=== PATIENT | female | born 1935 | race Caucasian/White ===

== ENCOUNTER 2016-11-21 14:17 | Emergency (ER) | payer OTHER ==
[~2016-11-21] VITALS: Ht 160 cm; Wt 74.0 kg
[~2016-11-21 14:17] MED LIST: ATEN50TA PO; BRIN1SUS OPL; CHOL100010 PO; DULO60CA44 PO; FENO54TA PO; GLIM1TAB2 PO; LOSA50TA6 PO
[2016-11-21 14:18] VITALS: TEMP 37; Ht 160 cm; Wt 74.0 kg
--- NOTE | 2016-11-21 15:24 | DIAGNOSTIC IMAGING REPORT ---
RIGHT KNEE 3 VIEWS CLINICAL HISTORY: right knee pain, giving out Right pain COMPARISON: None. DISCUSSION: Considerable degenerative change all major joint compartments. Moderate reactive osteophytic change throughout. No evidence for fracture or dislocation. IMPRESSION: Considerable degenerative change all major joint compartments. No acute process. The above report was generated using voice recognition software. It may contain grammatical, syntax or spelling errors. Electronically signed by: Ariel Callejas M.D. 11/21/2016 3:23 PM Dictated Date/Time: 11/21/2016 3:22 PM
[2016-11-21] MEDS ORDERED: CHOL1000 PO (15:31)
[2016-11-21] MEDS ORDERED: HYZ/50125 PO (15:31)
[2016-11-21] MEDS ORDERED: HYDR-5688 PO (15:31)
--- NOTE | 2016-11-21 15:40 | EMERGENCY ROOM VISIT NOTE ---
History First contact with patient: 14:40 Chief Complaint: KNEEPAIN Stated Complaint: KNEE PAIN History of Present Illness The patient is a 81 year old female who presents to the Emergency Room with complaints of right knee pain. The patient states that she was getting out of her car earlier today when her knee "locked up" and she was unable to bear any weight on it. She has been stretching the knee without relief. She denies any pain at rest, but states that she cannot bear weight on the knee. The patient states that she has a history of knee problems. She has seen [facility] in the past and has had injections in the knee and physical therapy. She was told she may need a knee replacement at some point. She states that she has been doing well until about 3 months ago. She has had frequent episodes of her knee giving out or locking up. She has not seen orthopedics in over one year. She denies any pain in the hip or ankle. Review of Systems A complete 10 point review of systems was reviewed with the patient with pertinent positives and negatives as per history of present illness. All else were negative. Social History Smoking Status: Never Smoker Current/Historical Medications Scheduled Atenolol (Tenormin), 50 MG PO HS Cholecalciferol (Vitamin D3), 1,000 INTER.UNIT PO DAILY Fenofibrate (Tricor), 54 MG PO QAM Glimepiride (Glimepiride), 1 MG PO QAM Hctz/Losartan (Hyzaar 12.5MG/50MG), 1 TAB PO DAILY Hydrocodone/Acetaminophen 5MG/325MG ([place] 5MG/325MG), 1 TABLET PO BID Physical Exam Vital Signs Date Time Temp Pulse Resp B/P (MAP) Pulse Ox O2 Delivery O2 Flow Rate FiO2 11/21/16 14:18 37.0 56 20 188/67 98 Room Air Physical Exam VITALS: Vitals are noted on the nurse's note and reviewed by myself. Vital signs stable. GENERAL: This is a 81-year-old female, in no acute distress, nondiaphoretic, well-developed well-nourished. SKIN: No erythema or edema. MUSCULOSKELETAL: There is no ecchymosis or edema of the right knee. There is no joint effusion. Full range of motion of the knee. Negative anterior drawer. No laxity with valgus or varus stressing. NEURO: Patient was alert and oriented to person place and time. Normal sensation to light and sharp touch. Medical Decision & Procedures ER Provider Diagnostic Interpretation: RIGHT KNEE 3 VIEWS CLINICAL HISTORY: right knee pain, giving out Right pain COMPARISON: None. DISCUSSION: Considerable degenerative change all major joint compartments. Moderate reactive osteophytic change throughout. No evidence for fracture or dislocation. IMPRESSION: Considerable degenerative change all major joint compartments. No acute process. Medical Decision Differential diagnosis includes fracture, sprain, dislocation, contusion, osteoarthritis, popliteal cyst, prepatellar bursitis, septic joint, gout, among others. The patient was evaluated as above. She has no significant tenderness on exam. X-rays showed significant arthritis in all compartments. During the patient' s stay, she was able to stand up and walk to the bathroom without difficulty. She was reevaluated and was walking at her baseline with her cane. The patient will certainly need follow-up with her established orthopedics for further evaluation of her ongoing knee issues. She will call for appointment. She verbalized understanding of my assessment and treatment plan and was discharged home in good condition. The patient was independently evaluated by Dr. Kingsley, ED attending physician , who agreed with my assessment and treatment plan. Medication Reconcilliation Current Medication List: was personally reviewed by me Blood Pressure Screening Patient's blood pressure: Elevated blood pressure Blood pressure disposition: Elevated BP felt to be situational Impression Primary Impression: Osteoarthritis of right knee Departure Information Dispostion Home / Self-Care Condition GOOD Referrals Alix Lyn M.D. (PCP) Enoc Iglesias M.D. Patient Instructions My [facility] Additional Instructions Contact [facility] office to schedule a follow-up appointment regarding your knee problems. Use the cane to aid with walking. Return to the emergency department with any new/concerning symptoms. Problem Qualifiers Primary Impression: Osteoarthritis of right knee Osteoarthritis type: unspecified Qualified Codes: M17.11 - Unilateral primary osteoarthritis, right knee
--- NOTE | 2016-11-21 15:43 | EMERGENCY ROOM VISIT NOTE ---
ED Visit Note First contact with patient: 14:40 Pt well appearing here, examined at bedside. Feels knee pain has resolved. No trauma. Hx of same previously but would usually resolve quicker. Pt now walking with a normal gait. Family confirms gait appears normal. No recurrent pain. Discussed chronic knee pain and known arthritis. Pt previously told she would need a knee replacement. Discussed sx to watch/return for, she verbalized understanding and was agreeable with plan.
[2016-11-21 15:48] VITALS: BP 158/77; PULSE 71; O2SAT 99
== END 2016-11-21 15:50 | disposition home or self-care (01) ==
LOC: EDBD 14:17 → C.EDC 14:19
DX: M17.11 Unilateral primary osteoarthritis, right knee (principal)

== ENCOUNTER 2021-04-20 19:09 | Inpatient (IN) ==
--- NOTE | 2021-04-20 19:59 | Emergency Department Note ---
Impression & Plan Word finding difficulty, Weakness, Hypomagnesemia ED Provider Note Provider: Raudel Kee MD DATE OF SERVICE: 04/20/2021 CHIEF COMPLAINT: Weak, some confusion HISTORY OF PRESENT ILLNESS: Patient is a 85-year-old female history of hypertension as well as parkinsonism presenting today via ambulance from her home. Patient is not the best historian but states over the last least 4 days she has been feeling a bit more weak. States maybe a little more foggy. States she has had at least 5 or 6 falls and has at least twice hit her head. Denies severe headache at this time. No fever chills reported. A slight resting tremors reported. Patient denies any nausea or vomiting. Patient states earlier this evening she did have some trouble getting out of words. Patient's son reports intermittently her last few days she is been having some weakness in the last 2 days have been fairly well. reports that the patient according to his was well at lunch. He came down around 5:30 PM or so this evening and she seemed to have some word finding and occasionally would stare of f. REVIEW OF SYSTEMS: A total of 10 review of systems was obtained and negative except as stated above in the HPI. PAST MEDICAL HISTORY: As noted above MEDICATIONS: Reviewed home medication list SOCIAL HISTORY: Lives with son PHYSICAL EXAM: GENERAL: alert and oriented in no acute distress on stretcher Head: normocephalic and atraumatic EYES: No injection, discharge or icterus. PERRL, EOMI. NECK: Trachea midline. Supple ENT: Mucous membranes pink and moist. Tongue midline. LUNGS: Airway patent. No retractions. Breath sounds clear with good air entry bilaterally. HEART: Regular rate and rhythm. No chest wall tenderness ABDOMEN: Soft and non-tender, without guarding or rebound. SKIN: Acyanotic, warm, dry, without rashes EXTREMITIES: Without swelling, tenderness or deformity NEUROLOGICAL: No focal deficits. No dysarthria but occasionally some mild word finding. No facial droop or slurred speech. Tongue midline. Normal strength and tone in the extremities. Sensation to gross touch normal. Patient with a slight resting tremor or and pill-rolling of the right hand. EK bpm normal sinus rhythm. No PVC or PAC. No acute ST segment elevation with some findings concerning for LVH. QTc 441. Left anterior fascicular block noted. CONTINUOUS CARDIAC MONITORING: was ordered and showed a heart rate of 60s-90s bpm in normal sinus rhythm Patient's laboratory studies and imaging reviewed. Differential includes Infection, dehydration, metabolic abnormality, hypo/hyperglycemia, electrolyte disturbance, anemia, hypoxia, cardiac sources, intracerebral event, toxicologic, neurologic, as well as other pathologies. IMPRESSION/MEDICAL DECISION MAKING: Some weakness and multiple falls over the past several days. Son initially attributed maybe to some high Parkinson's meds that were recently increased but these were then stopped. Some word finding since around 5:30 PM according to the son. Patient without focal deficit or ischial droop at this time. Patient last known well was around noon to 1230 and outside the window for any thrombolytics. Also significantly hypertensive here. Did not take her atenolol by report. CT the head will be completed given this as well as the report of some falls. Basic labs completed. EMS reports the patient did live in the basement with a furnace and a carboxyhemoglobin was sent and was 0. Not having active chest pain and no abdominal symptoms reported. No significant leukocytosis with minimal anemia today. No VBG abnormality. Very mild hypokalemia and mild hypomagnesemia noted. Some IV magnesium supplementation was ordered. No evidence of liver dysfunction or thyroid dysfunction. Negative urine sample. Negative Covid test. CT of the head per radiology without significant acute pathology noted or intracranial bleeding. CTA of the head and neck ordered to be completed although constellation of neurological symptoms that indicative of an LVO. Discussed with son and patient findings thus far. She is quite weak and difficult with ambulation in the room per nursing. With some word finding/aphasia. They are in agreement the plan for further care here at the hospital and hospice was contacted. Given a dose of aspirin. DIAGNOSIS: Hypomagnesemia, weakness, word finding DISPOSITION: Hospitalist will evaluate Patient was agreeable with this plan. Son agreeable with the plan at bedside. Past Med/Surg History Medical History (Updated 04/20/21 @ 22:13 by Yokasta Holman DO) CKD stage 3 due to type 1 diabetes mellitus Degeneration of cervical intervertebral disc Dyslipidemia Female stress incontinence GERD (gastroesophageal reflux disease) History of colon polyps HTN (hypertension) Hypercalcemia Osteoarthritis Parkinsons disease Postmenopausal atrophic vaginitis Primary open angle glaucoma Senile osteoporosis Slow transit constipation Spinal stenosis of lumbar region Statin intolerance Type 2 diabetes mellitus Surgical History (Updated 04/20/21 @ 23:01 by Yokasta Holman DO) H/O cataract removal with insertion of prosthetic lens H/O colonoscopy History of esophagogastroduodenoscopy (EGD) Family History Father Cancer Unknown No problems noted. Uncle Pancreatic cancer Social History (Updated 04/20/21 @ 22:59 by Yokasta Holman DO) Smoking Status: Never smoker Hx Alcohol Use: No Hx Substance Use: No Preferred Language: Kittitian marital status: / current occupational status: retired Allergies Allergies Allergy/AdvReac Type Severity Reaction Status Date / Time Sulfa (Sulfonamide Allergy Intermediate Rash Verified 04/20/21 21:19 Antibiotics) carbidopa AdvReac Intermediate FELL Verified 04/20/21 21:24 SEVERAL TIMES levodopa AdvReac Intermediate FELL Verified 04/20/21 21:24 SEVERAL TIMES nitrofurantoin AdvReac Intermediate NAUSEA/VOMI Verified 04/20/21 21:19 TING Home Meds Home Medications Medication Instructions Recorded Confirmed acetaminophen 650 mg 650 mg PO Q12H PRN 04/20/21 04/20/21 tablet,extended release atenolol 50 mg tablet 50 mg PO QPM 04/20/21 04/20/21 furosemide 40 mg tablet 40 mg PO DAILY PRN 04/20/21 04/20/21 losartan 50 mg tablet 50 mg PO QAM 04/20/21 04/20/21 meloxicam 7.5 mg tablet 7.5 mg PO DAILY PRN 04/20/21 04/20/21 sertraline 25 mg tablet 25 mg PO QAM 04/20/21 04/20/21 Results & Data (ED) Vital Signs Vital Signs - 24 hr 04/20/21 19:22 04/20/21 19:37 04/20/21 20:01 Temperature 36.7 C 36.7 C Temperature Source Oral Oral Pulse Rate 65 Pulse Rate [Right Finger] 87 Pulse Rhythm [Right Finger] Irregular Respiratory Rate 18 17 Respiratory Depth Normal Normal Blood Pressure 201/88 H Blood Pressure [Right Arm] 171/84 H Blood Pressure Mean 125 Blood Pressure Mean [Right Arm] 113 Pulse Oximetry 95 97 Oxygen Delivery Method Room Air Room Air Room Air Sepsis Recent Fever Within 48 Hours No Sepsis New/Unexplained Change in Mental Status No Sepsis Action Taken by Nursing No Action Required Laboratory Data Result diagrams: 04/20/21 20:19 04/20/21 20:19 Lab Results 04/20/21 04/20/21 04/20/21 Range/Units 20:00 20:00 20:00 WBC Cancelled RBC Cancelled Hgb Cancelled Hct Cancelled MCV Cancelled MCH Cancelled MCHC Cancelled RDW Std Deviation Cancelled RDW Coeff of Joe Cancelled Plt Count Cancelled MPV Cancelled Immature Gran % (Auto) Cancelled Neut % (Auto) Cancelled Lymph % (Auto) Cancelled [place] % (Auto) Cancelled Eos % (Auto) Cancelled Baso % (Auto) Cancelled Neut # (Auto) Cancelled Lymph # (Auto) Cancelled [place] # (Auto) Cancelled Eos # (Auto) Cancelled Baso # (Auto) Cancelled Immature Gran # (Auto) Cancelled Absolute Nucleated RBC Cancelled Nucleated RBC % (auto) Cancelled Neutrophils % (Manual) Cancelled Band Neutrophils % Cancelled Lymphocytes % (Manual) Cancelled Prolymphocyte % Cancelled Reactive Lymphs % (Man) Cancelled Monocytes % (Manual) Cancelled Eosinophils % (Manual) Cancelled Basophils % (Manual) Cancelled Metamyelocytes % (Man) Cancelled Myelocytes % (Man) Cancelled Promyelocytes % (Man) Cancelled Blast Cells % (Manual) Cancelled Plasma Cell % (Manual) Cancelled Other Cells % Cancelled Nucleated RBC % Cancelled Neutrophils # (Manual) Cancelled Band Neutrophils # Cancelled Total Absolute Neuts Cancelled Lymphocytes # (Manual) Cancelled Prolymphocyte # Cancelled Reactive Lymphs # Cancelled Total Abs Lymphocytes Cancelled Monocytes # (Manual) Cancelled Eosinophils # (Manual) Cancelled Basophils # (Manual) Cancelled Metamyelocytes # (Man) Cancelled Myelocytes # (Manual) Cancelled Promyelocytes # (Man) Cancelled Blast Cells # (Man) Cancelled Plasma Cell # (Manual) Cancelled Other Cells # Cancelled Nucleated RBCs # (Man) Cancelled Hypersegmented Neuts Cancelled Hyposegmented Neuts Cancelled Hypogranular Neuts Cancelled Large Granular Lymphs Cancelled # Lrg Granular Lymphs Cancelled Hairy Cells Cancelled Smudge Cells Cancelled Toxic Granulation Cancelled Toxic Vacuolation Cancelled Dohle Bodies Cancelled Miladis Rods Cancelled Platelet Estimate Cancelled Hypogranular Platelets Cancelled Clumped Platelets Cancelled Giant Platelets Cancelled Platelet Satelliting Cancelled RBC Morphology Cancelled Polychromasia Cancelled Hypochromasia Cancelled Poikilocytosis Cancelled Basophilic Stippling Cancelled Anisocytosis Cancelled Microcytosis Cancelled Macrocytosis Cancelled Spherocytes Cancelled Pappenheimer Bodies Cancelled Sickle Cells Cancelled Target Cells Cancelled Tear Drop Cells Cancelled Ovalocytes Cancelled Stomatocytes Cancelled Tinsley-Lockney Bodies Cancelled Echinocytes Cancelled Acanthocytes (Spur) Cancelled Rouleaux Cancelled RBC Agglutinates Cancelled Schistocytes Cancelled RBC Morph Comment Cancelled Sezary Cell Cancelled PT (9.0-12.0) Seconds INR (0.9-1.1) VBG pH (7.36-7.41) VBG pCO2 (38-50) mmHg VBG pO2 mmHg VBG HCO3 mmol/L VBG O2 Saturation % VBG Base Excess mEq/L Carboxyhemoglobin % THgb Barometric Pressure mm/Hg Sodium 141 (136-145) mmol/L Potassium TNP Chloride 106 (98-107) mmol/L Carbon Dioxide 24 (21-32) mmol/L Anion Gap 11 (3-11) BUN 17 (6-23) mg/dl Creatinine 0.70 (0.6-1.2) mg/dl Est Cr Clr Drug Dosing Not Reportable Est GFR ( Amer) 92.9 ml/min Est GFR (Non-Af Amer) 80.1 ml/min BUN/Creatinine Ratio 24.3 H (10-20) Glucose 106 H (70-99(Fasting)) mg/dl Calcium 9.0 (8.5-10.1) mg/dl Magnesium 1.4 L (1.7-2.4) mg/dl Total Bilirubin 0.5 (0.2-1.0) mg/dl AST TNP ALT 6 L (7-52) U/L Alkaline Phosphatase 87 (34-104) U/L Troponin I < 0.03 (0-0.04) ng/ml Total Protein 6.2 (6.0-8.3) gm/dl Albumin 3.8 (3.4-5.0) gm/dl Globulin 2.4 L (2.5-4.0) gm/dl Albumin/Globulin Ratio 1.6 (0.9-2) TSH (0.300-4.500) uIu/ml Urine Color Urine Appearance (Clear) Urine pH (4.5-7.5) Ur Specific [place] (1.000-1.030) Urine Protein (Negative) Urine Glucose (UA) (Negative) Urine Ketones (Negative) Urine Blood (Negative) Urine Nitrite (Negative) Urine Bilirubin (Negative) Urine Urobilinogen (Negative) Ur Leukocyte Esterase (Negative) SARS-CoV-2, RNA, NAAT NEGATIVE (NEGATIVE) 04/20/21 04/20/21 04/20/21 Range/Units 20:10 20:10 20:10 WBC RBC Hgb Hct MCV MCH MCHC RDW Std Deviation RDW Coeff of Joe Plt Count MPV Immature Gran % (Auto) Neut % (Auto) Lymph % (Auto) [place] % (Auto) Eos % (Auto) Baso % (Auto) Neut # (Auto) Lymph # (Auto) [place] # (Auto) Eos # (Auto) Baso # (Auto) Immature Gran # (Auto) Absolute Nucleated RBC Nucleated RBC % (auto) Neutrophils % (Manual) Band Neutrophils % Lymphocytes % (Manual) Prolymphocyte % Reactive Lymphs % (Man) Monocytes % (Manual) Eosinophils % (Manual) Basophils % (Manual) Metamyelocytes % (Man) Myelocytes % (Man) Promyelocytes % (Man) Blast Cells % (Manual) Plasma Cell % (Manual) Other Cells % Nucleated RBC % Neutrophils # (Manual) Band Neutrophils # Total Absolute Neuts Lymphocytes # (Manual) Prolymphocyte # Reactive Lymphs # Total Abs Lymphocytes Monocytes # (Manual) Eosinophils # (Manual) Basophils # (Manual) Metamyelocytes # (Man) Myelocytes # (Manual) Promyelocytes # (Man) Blast Cells # (Man) Plasma Cell # (Manual) Other Cells # Nucleated RBCs # (Man) Hypersegmented Neuts Hyposegmented Neuts Hypogranular Neuts Large Granular Lymphs # Lrg Granular Lymphs Hairy Cells Smudge Cells Toxic Granulation Toxic Vacuolation Dohle Bodies Miladis Rods Platelet Estimate Hypogranular Platelets Clumped Platelets Giant Platelets Platelet Satelliting RBC Morphology Polychromasia Hypochromasia Poikilocytosis Basophilic Stippling Anisocytosis Microcytosis Macrocytosis Spherocytes Pappenheimer Bodies Sickle Cells Target Cells Tear Drop Cells Ovalocytes Stomatocytes Kush[place] Bodies Echinocytes Acanthocytes (Spur) Rouleaux RBC Agglutinates Schistocytes RBC Morph Comment Sezary Cell PT 10.3 (9.0-12.0) Seconds INR 1.0 (0.9-1.1) VBG pH 7.40 (7.36-7.41) VBG pCO2 47 (38-50) mmHg VBG pO2 30 mmHg VBG HCO3 28 mmol/L VBG O2 Saturation < 60.0 % VBG Base Excess 2.6 mEq/L Carboxyhemoglobin 0.0 % THgb Barometric Pressure 726.1 mm/Hg Sodium (136-145) mmol/L Potassium Chloride (98-107) mmol/L Carbon Dioxide (21-32) mmol/L Anion Gap (3-11) BUN (6-23) mg/dl Creatinine (0.6-1.2) mg/dl Est Cr Clr Drug Dosing Est GFR ( Amer) ml/min Est GFR (Non-Af Amer) ml/min BUN/Creatinine Ratio (10-20) Glucose (70-99(Fasting)) mg/dl Calcium (8.5-10.1) mg/dl Magnesium (1.7-2.4) mg/dl Total Bilirubin (0.2-1.0) mg/dl AST ALT (7-52) U/L Alkaline Phosphatase (34-104) U/L Troponin I (0-0.04) ng/ml Total Protein (6.0-8.3) gm/dl Albumin (3.4-5.0) gm/dl Globulin (2.5-4.0) gm/dl Albumin/Globulin Ratio (0.9-2) TSH (0.300-4.500) uIu/ml Urine Color Urine Appearance (Clear) Urine pH (4.5-7.5) Ur Specific [place] (1.000-1.030) Urine Protein (Negative) Urine Glucose (UA) (Negative) Urine Ketones (Negative) Urine Blood (Negative) Urine Nitrite (Negative) Urine Bilirubin (Negative) Urine Urobilinogen (Negative) Ur Leukocyte Esterase (Negative) SARS-CoV-2, RNA, NAAT (NEGATIVE) 04/20/21 04/20/21 04/20/21 Range/Units 20:10 20:19 20:19 WBC 6.50 RBC 3.90 L Hgb 11.8 L Hct 37.3 MCV 95.6 MCH 30.3 MCHC 31.6 L RDW Std Deviation 48.9 H RDW Coeff of Joe 14.0 Plt Count 246 MPV 10.0 Immature Gran % (Auto) 0.2 Neut % (Auto) 53.7 Lymph % (Auto) 33.5 [place] % (Auto) 8.8 Eos % (Auto) 3.2 Baso % (Auto) 0.6 Neut # (Auto) 3.49 Lymph # (Auto) 2.18 [place] # (Auto) 0.57 Eos # (Auto) 0.21 Baso # (Auto) 0.04 Immature Gran # (Auto) 0.01 Absolute Nucleated RBC Nucleated RBC % (auto) Neutrophils % (Manual) Band Neutrophils % Lymphocytes % (Manual) Prolymphocyte % Reactive Lymphs % (Man) Monocytes % (Manual) Eosinophils % (Manual) Basophils % (Manual) Metamyelocytes % (Man) Myelocytes % (Man) Promyelocytes % (Man) Blast Cells % (Manual) Plasma Cell % (Manual) Other Cells % Nucleated RBC % Neutrophils # (Manual) Band Neutrophils # Total Absolute Neuts Lymphocytes # (Manual) Prolymphocyte # Reactive Lymphs # Total Abs Lymphocytes Monocytes # (Manual) Eosinophils # (Manual) Basophils # (Manual) Metamyelocytes # (Man) Myelocytes # (Manual) Promyelocytes # (Man) Blast Cells # (Man) Plasma Cell # (Manual) Other Cells # Nucleated RBCs # (Man) Hypersegmented Neuts Hyposegmented Neuts Hypogranular Neuts Large Granular Lymphs # Lrg Granular Lymphs Hairy Cells Smudge Cells Toxic Granulation Toxic Vacuolation Dohle Bodies Miladis Rods Platelet Estimate Hypogranular Platelets Clumped Platelets Giant Platelets Platelet Satelliting RBC Morphology Polychromasia Hypochromasia Poikilocytosis Basophilic Stippling Anisocytosis Microcytosis Macrocytosis Spherocytes Pappenheimer Bodies Sickle Cells Target Cells Tear Drop Cells Ovalocytes Stomatocytes Tinsley-Lockney Bodies Echinocytes Acanthocytes (Spur) Rouleaux RBC Agglutinates Schistocytes RBC Morph Comment Sezary Cell PT (9.0-12.0) Seconds INR (0.9-1.1) VBG pH (7.36-7.41) VBG pCO2 (38-50) mmHg VBG pO2 mmHg VBG HCO3 mmol/L VBG O2 Saturation % VBG Base Excess mEq/L Carboxyhemoglobin % THgb Barometric Pressure mm/Hg Sodium (136-145) mmol/L Potassium 3.3 L Chloride (98-107) mmol/L Carbon Dioxide (21-32) mmol/L Anion Gap (3-11) BUN (6-23) mg/dl Creatinine (0.6-1.2) mg/dl Est Cr Clr Drug Dosing Est GFR ( Amer) ml/min Est GFR (Non-Af Amer) ml/min BUN/Creatinine Ratio (10-20) Glucose (70-99(Fasting)) mg/dl Calcium (8.5-10.1) mg/dl Magnesium (1.7-2.4) mg/dl Total Bilirubin (0.2-1.0) mg/dl AST 14 ALT (7-52) U/L Alkaline Phosphatase (34-104) U/L Troponin I (0-0.04) ng/ml Total Protein (6.0-8.3) gm/dl Albumin (3.4-5.0) gm/dl Globulin (2.5-4.0) gm/dl Albumin/Globulin Ratio (0.9-2) TSH 3.894 (0.300-4.500) uIu/ml Urine Color Urine Appearance (Clear) Urine pH (4.5-7.5) Ur Specific [place] (1.000-1.030) Urine Protein (Negative) Urine Glucose (UA) (Negative) Urine Ketones (Negative) Urine Blood (Negative) Urine Nitrite (Negative) Urine Bilirubin (Negative) Urine Urobilinogen (Negative) Ur Leukocyte Esterase (Negative) SARS-CoV-2, RNA, NAAT (NEGATIVE) 04/20/21 Range/Units 21:05 WBC RBC Hgb Hct MCV MCH MCHC RDW Std Deviation RDW Coeff of Joe Plt Count MPV Immature Gran % (Auto) Neut % (Auto) Lymph % (Auto) [place] % (Auto) Eos % (Auto) Baso % (Auto) Neut # (Auto) Lymph # (Auto) [place] # (Auto) Eos # (Auto) Baso # (Auto) Immature Gran # (Auto) Absolute Nucleated RBC Nucleated RBC % (auto) Neutrophils % (Manual) Band Neutrophils % Lymphocytes % (Manual) Prolymphocyte % Reactive Lymphs % (Man) Monocytes % (Manual) Eosinophils % (Manual) Basophils % (Manual) Metamyelocytes % (Man) Myelocytes % (Man) Promyelocytes % (Man) Blast Cells % (Manual) Plasma Cell % (Manual) Other Cells % Nucleated RBC % Neutrophils # (Manual) Band Neutrophils # Total Absolute Neuts Lymphocytes # (Manual) Prolymphocyte # Reactive Lymphs # Total Abs Lymphocytes Monocytes # (Manual) Eosinophils # (Manual) Basophils # (Manual) Metamyelocytes # (Man) Myelocytes # (Manual) Promyelocytes # (Man) Blast Cells # (Man) Plasma Cell # (Manual) Other Cells # Nucleated RBCs # (Man) Hypersegmented Neuts Hyposegmented Neuts Hypogranular Neuts Large Granular Lymphs # Lrg Granular Lymphs Hairy Cells Smudge Cells Toxic Granulation Toxic Vacuolation Dohle Bodies Miladis Rods Platelet Estimate Hypogranular Platelets Clumped Platelets Giant Platelets Platelet Satelliting RBC Morphology Polychromasia Hypochromasia Poikilocytosis Basophilic Stippling Anisocytosis Microcytosis Macrocytosis Spherocytes Pappenheimer Bodies Sickle Cells Target Cells Tear Drop Cells Ovalocytes Stomatocytes Tinsley-Lockney Bodies Echinocytes Acanthocytes (Spur) Rouleaux RBC Agglutinates Schistocytes RBC Morph Comment Sezary Cell PT (9.0-12.0) Seconds INR (0.9-1.1) VBG pH (7.36-7.41) VBG pCO2 (38-50) mmHg VBG pO2 mmHg VBG HCO3 mmol/L VBG O2 Saturation % VBG Base Excess mEq/L Carboxyhemoglobin % THgb Barometric Pressure mm/Hg Sodium (136-145) mmol/L Potassium Chloride (98-107) mmol/L Carbon Dioxide (21-32) mmol/L Anion Gap (3-11) BUN (6-23) mg/dl Creatinine (0.6-1.2) mg/dl Est Cr Clr Drug Dosing Est GFR ( Amer) ml/min Est GFR (Non-Af Amer) ml/min BUN/Creatinine Ratio (10-20) Glucose (70-99(Fasting)) mg/dl Calcium (8.5-10.1) mg/dl Magnesium (1.7-2.4) mg/dl Total Bilirubin (0.2-1.0) mg/dl AST ALT (7-52) U/L Alkaline Phosphatase (34-104) U/L Troponin I (0-0.04) ng/ml Total Protein (6.0-8.3) gm/dl Albumin (3.4-5.0) gm/dl Globulin (2.5-4.0) gm/dl Albumin/Globulin Ratio (0.9-2) TSH (0.300-4.500) uIu/ml Urine Color Yellow Urine Appearance Clear (Clear) Urine pH 7.0 (4.5-7.5) Ur Specific [place] 1.012 (1.000-1.030) Urine Protein Negative (Negative) Urine Glucose (UA) Negative (Negative) Urine Ketones Negative (Negative) Urine Blood Negative (Negative) Urine Nitrite Negative (Negative) Urine Bilirubin Negative (Negative) Urine Urobilinogen Negative (Negative) Ur Leukocyte Esterase Negative (Negative) SARS-CoV-2, RNA, NAAT (NEGATIVE) Administered Medications Discontinued Medications Aspirin (Aspirin Chew 324 Mg) 324 mg PO NOW STA Stop: 04/20/21 21:56 Last Admin: 04/20/21 22:51 Dose: 324 mg Documented by: [id number] Magnesium Sulfate/Dextrose (Magnesium Sulfate / D5w) 1 gm in 100 mls @ 100 mls/hr IV NOW STA Stop: 04/20/21 22:28 Last Admin: 04/20/21 22:51 Dose: 100 mls/hr Documented by: [id number] Imaging Data Radiologist's Impression: Head CT 04/20/21 19:34 CT head/brain wo con CLINICAL HISTORY: weakness, falls, confusion at times Technique: Contiguous axial CT images of the head were acquired from the base of the skull to the vertex without intravenous contrast administration. Images were viewed in brain, subdural and bone windows. Automated dose lowering techniques and/or adjustment according to patient size were utilized for this exam. Comparison: None available at the time of this dictation. Findings: Areas of decreased attenuation are present in the periventricular and subcortical white matter bilaterally consistent with small vessel ischemic disease. Generalized cerebral atrophy with commensurate enlargement of the ventricles, sulci, and cisterns is also present. There is no acute intracranial hemorrhage or evidence of acute territorial infarction. No shift of the midline structures, mass effect, or extra-axial abnormalities are shown. Atherosclerotic calcifications are present in the intracranial segments of the internal carotid arteries. There is a likely subarachnoid cyst in the left frontoparietal region. Imaged portions of the paranasal sinuses and mastoid air cells are clear. The orbits appear normal. There are no acute fractures of the calvaria or scalp swelling. Impression: No acute intracranial hemorrhage, no evidence of acute territorial infarction or other acute intracranial disease process. ACT 112: Negative or not required by law. Electronically signed by: Von Roche M.D. 04/20/2021 8:57 PM Chest X-Ray 04/20/21 19:35 XR chest 1V portable CLINICAL HISTORY: weakness TECHNIQUE: Single frontal radiograph of the chest was obtained. Comparison: None available at the time of this dictation. FINDINGS: No lines and tubes are seen. The cardiomediastinal silhouette is normal. The lungs are clear. No evidence of pleural effusion or pneumothorax. IMPRESSION: No acute chest disease. ACT 112: Negative or not required by law. Electronically signed by: Von Roche M.D. 04/20/2021 8:03 PM Discharge Plan Visit Data Chief Complaint: Weakness Stated Complaint: Weakness ED Provider: Raudel Kee Discharge Problem: Word finding difficulty, Weakness, Hypomagnesemia Patient Disposition: Being Evaluated by Hospitalist Forms Stand Alone Forms: My [facility] [place] [employer] Prescriptions Prescriptions: No Action losartan 50 mg tablet 50 mg PO QAM RF: 0 furosemide 40 mg tablet 40 mg PO DAILY PRN (Reason: EDEMA IN FEET) RF: 0 meloxicam 7.5 mg tablet 7.5 mg PO DAILY PRN (Reason: Pain) RF: 0 sertraline 25 mg tablet 25 mg PO QAM RF: 0 atenolol 50 mg tablet 50 mg PO QPM RF: 0 acetaminophen [Tylenol Arthritis] 650 mg Tablet Extended Release 650 mg PO Q12H PRN (Reason: Pain) RF: 0 Referrals Referrals: Keyanna Fink MD [Primary Care Provider] -
--- NOTE | 2021-04-20 20:05 | XRay Report ---
XR chest 1V portable CLINICAL HISTORY: weakness TECHNIQUE: Single frontal radiograph of the chest was obtained. Comparison: None available at the time of this dictation. FINDINGS: No lines and tubes are seen. The cardiomediastinal silhouette is normal. The lungs are clear. No evid ence of pleural effusion or pneumothorax. IMPRESSION: No acute chest disease. ACT 112: Negative or not required by law. Electronically signed by: Von Roche M.D. 04/20/2021 8:03 PM
[2021-04-20 20:25] LABS: Base Excess VBG 2.6 mEq/L; HCO3 VBG 28 mmol/L; PCO2 VBG 47 mmHg (38-50); PO2 VBG 30 mmHg
[2021-04-20 20:29] LABS: Troponin I < 0.03 ng/ml (0-0.04)
[2021-04-20 20:30] LABS: Basophils # (auto) 0.04 K/uL (0-0.2); Basophils % (auto) 0.6 %; Eosinophils # (auto) 0.21 K/uL (0-0.5); Eosinophils % (auto) 3.2 %; Hematocrit (blood only) 37.3 % (37-47); Hemoglobin 11.8 g/dL (12.0-16.0); Immature Granulocytes # (auto) 0.01 K/uL (0.00-0.02); Immature Granulocytes % (auto) 0.2 %; Lymphocytes # (auto) 2.18 K/uL (1.2-3.4); Lymphocytes % (auto) 33.5 %; Mean Corpuscular Hemoglobin 30.3 pg (25-34); Mean Corpuscular Hgb Conc 31.6 g/dL (32-36); Mean Corpuscular Volume 95.6 fL (80-100); Monocytes # (auto) 0.57 K/uL (0.11-0.59); Monocytes % (auto) 8.8 %; Neutrophils # (auto) 3.49 K/uL (1.4-6.5); Neutrophils % (auto) 53.7 %; Platelet Count 246 K/uL (130-400); RDW Standard Deviation 48.9 fL (36.4-46.3)
[2021-04-20 20:31] LABS: Alanine Aminotransferase 6 U/L (7-52); Albumin Globulin Ratio 1.6 (0.9-2); Albumin Level 3.8 gm/dl (3.4-5.0); Alkaline Phosphatase 87 U/L (34-104); Anion Gap 11 (3-11); BUN Creatinine Ratio 24.3 (10-20); Bilirubin,Total 0.5 mg/dl (0.2-1.0); Blood Urea Nitrogen 17 mg/dl (6-23); Carbon Dioxide 24 mmol/L (21-32); Chloride 106 mmol/L (98-107); Est GFR (African American) 92.9 ml/min; Est GFR (Non-African American) 80.1 ml/min; Globulin 2.4 gm/dl (2.5-4.0); Glucose 106 mg/dl (70-99(Fasting)); Magnesium 1.4 mg/dl (1.7-2.4); Sodium 141 mmol/L (136-145); Total Protein 6.2 gm/dl (6.0-8.3)
[2021-04-20 20:46] LABS: Prothrombin Time 10.3 Seconds (9.0-12.0)
--- NOTE | 2021-04-20 20:59 | CT Scan Report ---
CT head/brain wo con CLINICAL HISTORY: weakness, falls, confusion at times Technique: Contiguous axial CT images of the head were acquired from the base of the skull to the rosario mike without intravenous contrast administration. Images were viewed in brain, subdural and bone [facility] ws. Automated dose lowering techniques and/or adjustment according to patient size were utilized for this exam. Comparison: None available at the time of this dictation. Findings: Areas of decreased attenuation are present in the periventricular and subcortical white matter bilate rally consistent with small vessel ischemic disease. Generalized cerebral atrophy with commensurate e nlargement of the ventricles, sulci, and cisterns is also present. There is no acute intracranial hem orrhage or evidence of acute territorial infarction. No shift of the midline structures, mass effect, or extra-axial abnormalities are shown. Atherosclerotic calcifications are present in the intracran ial segments of the internal carotid arteries. There is a likely subarachnoid cyst in the left fronto parietal region. Imaged portions of the paranasal sinuses and mastoid air cells are clear. The orbits appear normal. There are no acute fractures of the calvaria or scalp swelling. Impression: No acute intracranial hemorrhage, no evidence of acute territorial infarction or other acute intracra nial disease process. ACT 112: Negative or not required by law. Electronically signed by: Von Roche M.D. 04/20/2021 8:57 PM
[2021-04-20 21:07] LABS: Oxygen Saturation VBG < 60.0 %
[2021-04-20 21:17] LABS: Appearance Urine Clear (Clear); Bilirubin Urine Negative (Negative); Blood Urine Negative (Negative); Color Urine Yellow; Glucose Urine UA Negative (Negative); Ketones Urine Negative (Negative); Leukocyte Esterase Urine Negative (Negative); Nitrite Urine Negative (Negative); Protein Urine Negative (Negative); Specific Gravity Urine 1.012 (1.000-1.030); Urobilinogen Urine Negative (Negative)
[2021-04-20 21:25] LABS: Potassium 3.3 mmol/L (3.5-5.1)
[2021-04-20] MEDS ORDERED: MAGNESIUM SULFATE / D5W 1 GM/100 ML BAG IV STA (21:29)
[2021-04-20] MEDS ORDERED: ASPIRIN CHEW 324 MG PO STA (21:55)
--- NOTE | 2021-04-20 22:11 | History & Physical Report ---
Date of Service April 20, 2021 Assessment & Plan (1) Stroke-like symptoms: Plan: New word finding difficulty that began today along with some intermittent confusion. This is new from her baseline. She has a h/o Parinsons disease and has stopped Sinemet two weeks ago. Also stopped Cymbalta 60mg. Also changed HCTZ to Lasix PRN. Multiple recurrent falls at home possibly a result of worsening Parkinson's, or med changes or both. Still has some slight word fi nding issues, however, she is doing very well remembering this and vocalizing them right now. CT head is negative but we are waiting on the angiograms. MR brain, TTE with bubble, PT/OT/speech consults ordered. Sees Dr. Ortiz regularly. Neurology was consulted. Start ASA 81mg daily. Statin intolerant. Cont to monitor on telemetry overnight. (2) Weakness: Plan: Acute weakness. Patient feels recent Moderna booster may have something to do with this. Cont workup as above. (3) Hypomagnesemia: Plan: Mag 1.4. She was given 1 gm IV and will repeat level in am. (4) Hypokalemia: Plan: K 3.3. Will give 40mg KCl now and repeat in am. (5) Parkinsons disease: Plan: Off sinement since two weeks ago. Neuro to evaluate. (6) HTN (hypertension): Plan: Permissive HTN allowed in first 48 hours. Hold home antihypertensives (7) CKD stage 3 due to type 1 diabetes mellitus: Plan: chronic, at baseline. Cont to monitor. (8) DVT prophylaxis: Plan: Lovenox. DNR-confirmed with she and her son on admission. Dispo-to telemetry floor, likely to home tomorrow afternoon if improved . Yokasta Holman DO [facility] Hospitalist History of Present Illness Chief Complaint: weakness Primary Care Provider: Keyanna Wick MD 85 yo F with Parkinsons disease presented from home via ambulance after acute weakness and confusion today noted by family along with difficulty finding some of her words. Recurrent falls have also been an issue. She reports receiving the Moderna booster shot in the last two weeks and also had this series to begin with last year. She reports some weakness and headache in response to the vaccine that improved but she never stopped feeling slightly weak. Son is at bedside and reports her shuffling gait has worsened. She has a clear resting tremor during this interview. No other diccifulty swallowing, headache, acute visual changes, difficulty breathing, chest pain, abdominal pain, UTI symptoms or other issues reported today. Medication changes recently include stopping HCTZ because of "puffiness in her feet" and starting furosemide 40mg daily. Although her Sinemet was increased from twice daily to thrice daily in Jan 2021 by her neurologist, her PCP just took her off of sinemet completely 03/30/21. She also stopped atorvastatin 20mg daily because of myalgias from statin intolerance, and duloxetine 60mg daily was stopped without a wean. Stopping Sinemet and Cymbalta was ok with her neurologist per a [employer] message on 03/13. At that time she was reporting worsening tremors and felt this was due to one of these medications. Potassium and Mag are noted to be low on workup. Head CT is negative and CXR is clear. EKG with LAFB, sinus rhythm. Troponin is negative. CTA head and neck are pending. UA is clear. She confirms she is a DNR and can explain to me what that means. Allergies Allergy/AdvReac Type Severity Reaction Status Date / Time Sulfa (Sulfonamide Allergy Intermediate Rash Verified 04/20/21 21:19 Antibiotics) carbidopa AdvReac Intermediate FELL Verified 04/20/21 21:24 SEVERAL TIMES levodopa AdvReac Intermediate FELL Verified 04/20/21 21:24 SEVERAL TIMES nitrofurantoin AdvReac Intermediate NAUSEA/VOMI Verified 04/20/21 21:19 TING Home Medications Medication Instructions Recorded Confirmed Type acetaminophen 650 mg 650 mg PO Q12H PRN 04/20/21 04/20/21 History tablet,extended release atenolol 50 mg tablet 50 mg PO QPM 04/20/21 04/20/21 History furosemide 40 mg tablet 40 mg PO DAILY PRN 04/20/21 04/20/21 History losartan 50 mg tablet 50 mg PO QAM 04/20/21 04/20/21 History meloxicam 7.5 mg tablet 7.5 mg PO DAILY PRN 04/20/21 04/20/21 History sertraline 25 mg tablet 25 mg PO QAM 04/20/21 04/20/21 History Past Med/Surg History Medical History (Updated 04/20/21 @ 22:13 by Yokasta Holman DO) CKD stage 3 due to type 1 diabetes mellitus Degeneration of cervical intervertebral disc Dyslipidemia Female stress incontinence GERD (gastroesophageal reflux disease) History of colon polyps HTN (hypertension) Hypercalcemia Osteoarthritis Parkinsons disease Postmenopausal atrophic vaginitis Primary open angle glaucoma Senile osteoporosis Slow transit constipation Spinal stenosis of lumbar region Statin intolerance Type 2 diabetes mellitus Surgical History (Updated 04/20/21 @ 23:01 by Yokasta Holman DO) H/O cataract removal with insertion of prosthetic lens H/O colonoscopy History of esophagogastroduodenoscopy (EGD) Family History Father Cancer Unknown No problems noted. Uncle Pancreatic cancer Social History (Updated 04/20/21 @ 22:59 by Yokasta Holman DO) Smoking Status: Never smoker Hx Alcohol Use: No Hx Substance Use: No Preferred Language: Vietnamese marital status: / current occupational status: retired Review of Systems Review of Systems: All systems were reviewed and negative except as indicated in HPI above. Physical Exam Physical Exam: CONSTITUTIONAL: WNWD, vitals as above, generally well- appearing, NAD EYES: EOMI bilaterally, PERRL, normal conjunctivae, no scleral icterus, ENT: external ear and nose normal, oropharynx clear, MMM NECK: trachea midline, RESPIRATORY: clear to auscultation bilaterally, no crackles, rales or wheezes, normal respiratory effort CARDIOVASCULAR: regular rate and rhythm, S1 and 2 heard without murmurs, gallops or rubs, no JVD, no peripheral edema, no carotid bruits CHEST: inspection of chest was normal GASTROINTESTINAL: soft, nontender, ND, no guarding MUSCULOSKELETAL: strength 5/5 throughout, head is normocephalic and atraumatic, neck supple, normal palpation of chest wall without tenderness SKIN: warm and dry, NEUROLOGIC: No facial palsy, no dysarthria. Touch, pain and proprioception normal. CN 2-12 grossly intact, no sensory deficit, normal cognition, normal speech, +tremor at rest PSYCHIATRIC: alert cooperative and oriented to person, and pamela but cannot verbalize where she is located. Results & Data Results & Data ([facility]) Vital Signs (Past 12 Hours) Vital Signs Temp Pulse Pulse Resp BP BP Pulse Ox 04/20/21 20:01 36.7 C 87 17 171/84 H 97 04/20/21 19:22 36.7 C 65 18 201/88 H 95 Laboratory Results Short CBC 04/20/21 04/20/21 Range/Units 20:00 20:19 WBC Cancelled 6.50 Hgb Cancelled 11.8 L Hct Cancelled 37.3 Plt Count Cancelled 246 BMP 04/20/21 04/20/21 20:00 20:19 Sodium 141 Potassium TNP 3.3 L Chloride 106 Carbon Dioxide 24 BUN 17 Creatinine 0.70 Glucose 106 H Calcium 9.0 Cardiac Enzymes 04/20/21 Range/Units 20:00 Troponin I < 0.03 (0-0.04) ng/ml Liver Function 04/20/21 04/20/21 Range/Units 20:00 20:19 Total Bilirubin 0.5 (0.2-1.0) mg/dl AST TNP 14 ALT 6 L (7-52) U/L Alkaline Phosphatase 87 (34-104) U/L Albumin 3.8 (3.4-5.0) gm/dl Urine 04/20/21 Range/Units 21:05 Urine Color Yellow Urine Appearance Clear (Clear) Urine pH 7.0 (4.5-7.5) Ur Specific [place] 1.012 (1.000-1.030) Urine Protein Negative (Negative) Urine Glucose (UA) Negative (Negative) Diagnostic Findings Head CT 04/20/21 19:34 CT head/brain wo con CLINICAL HISTORY: weakness, falls, confusion at times Technique: Contiguous axial CT images of the head were acquired from the base of the skull to the vertex without intravenous contrast administration. Images were viewed in brain, subdural and bone windows. Automated dose lowering techniques and/or adjustment according to patient size were utilized for this exam. Comparison: None available at the time of this dictation. Findings: Areas of decreased attenuation are present in the periventricular and subcortical white matter bilaterally consistent with small vessel ischemic disease. Generalized cerebral atrophy with commensurate enlargement of the ventricles, sulci, and cisterns is also present. There is no acute intracranial hemorrhage or evidence of acute territorial infarction. No shift of the midline structures, mass effect, or extra-axial abnormalities are shown. Atherosclerotic calcifications are present in the intracranial segments of the internal carotid arteries. There is a likely subarachnoid cyst in the left frontoparietal region. Imaged portions of the paranasal sinuses and mastoid air cells are clear. The orbits appear normal. There are no acute fractures of the calvaria or scalp swelling. Impression: No acute intracranial hemorrhage, no evidence of acute territorial infarction or other acute intracranial disease process. ACT 112: Negative or not required by law. Electronically signed by: Von Roche M.D. 04/20/2021 8:57 PM Chest X-Ray 04/20/21 19:35 XR chest 1V portable CLINICAL HISTORY: weakness TECHNIQUE: Single frontal radiograph of the chest was obtained. Comparison: None available at the time of this dictation. FINDINGS: No lines and tubes are seen. The cardiomediastinal silhouette is normal. The lungs are clear. No evidence of pleural effusion or pneumothorax. IMPRESSION: No acute chest disease. ACT 112: Negative or not required by law. Electronically signed by: Von Roche M.D. 04/20/2021 8:03 PM Code Status & VTE Plan VTE Prophylaxis Plan VTE Prophylaxis will be ordered: Yes
[2021-04-20] MEDS ORDERED: POTASSIUM CHLORIDE CRTAB 20 MEQ TABCR PO STA (23:08)
[2021-04-20] MEDS ORDERED: LORazepam 0.25 MG/0.5 ML VIAL IV STA (23:30)
[2021-04-20] MEDS ORDERED: ACETAMINOPHEN 325 MG TAB PO PRN (23:56)
[2021-04-20] MEDS ORDERED: PHARMACIST DISCHARGE MED REC CONSULT PRN (23:56)
[2021-04-20] MEDS ORDERED: POLYETHYLENE (MIRALAX) 17 GM PACK PO PRN (23:56)
[2021-04-21] MEDS ORDERED: OPTIRAY 320 125ml IV ONE (00:43)
[2021-04-21] MEDS ORDERED: ATENOLOL 25 MG TABLET PO STA (02:13)
--- NOTE | 2021-04-21 06:53 | CT Scan Report ---
HEAD & NECK CTA HISTORY: Confusion. word finding difficulty, weakness TECHNIQUE: Multiaxial CT images of the head were performed following the intravenous administration o f contrast to evaluate the major cerebral vessels. Multiaxial CT images of the neck were also perform ed following the intravenous administration of contrast to evaluate the major cervical vessels. Maxim um intensity projection images were also obtained. A dose lowering technique was utilized adhering to the principles of ALARA. COMPARISON: Head CT 04/21/2021. FINDINGS: Visualized intracranial internal carotid arteries, distal vertebral arteries, and basilar artery are widely patent. There is no significant stenosis, occlusion, or aneurysm seen within the bilateral KAE s, MCAs, or vice president payment. There is a persistent left posterior circulation. Mild calcified plaque withi n the bilateral carotid siphons. The major dural venous sinuses appear patent. The aortic arch and proximal great vessels are widely patent. There is no significant stenosis, occ lusion, or dissection identified within the bilateral common carotid, internal carotid, or vertebral arteries. Mild calcified plaque within the left carotid bifurcation. IMPRESSION: 1. No significant stenosis, occlusion, or aneurysm within the [place]. 2. No significant stenosis, occlusion, or dissection identified within the carotid or vertebral arter ies. ACT 112: Negative or not required by law. Electronically signed by: Mani Ngo M.D. 04/21/2021 6:51 AM
--- NOTE | 2021-04-21 06:53 | CT Scan Report ---
HEAD & NECK CTA HISTORY: Confusion. word finding difficulty, weakness TECHNIQUE: Multiaxial CT images of the head were performed following the intravenous administration o f contrast to evaluate the major cerebral vessels. Multiaxial CT images of the neck were also perform ed following the intravenous administration of contrast to evaluate the major cervical vessels. Maxim um intensity projection images were also obtained. A dose lowering technique was utilized adhering to the principles of ALARA. COMPARISON: Head CT 04/21/2021. FINDINGS: Visualized intracranial internal carotid arteries, distal vertebral arteries, and basilar artery are widely patent. There is no significant stenosis, occlusion, or aneurysm seen within the bilateral KAE s, MCAs, or warehouse hand. There is a persistent left posterior circulation. Mild calcified plaque withi n the bilateral carotid siphons. The major dural venous sinuses appear patent. The aortic arch and proximal great vessels are widely patent. There is no significant stenosis, occ lusion, or dissection identified within the bilateral common carotid, internal carotid, or vertebral arteries. Mild calcified plaque within the left carotid bifurcation. IMPRESSION: 1. No significant stenosis, occlusion, or aneurysm within the [place]. 2. No significant stenosis, occlusion, or dissection identified within the carotid or vertebral arter ies. ACT 112: Negative or not required by law. Electronically signed by: Mani Ngo M.D. 04/21/2021 6:51 AM
--- NOTE | 2021-04-21 07:33 | Magnetic Resonance Report ---
Brain MRI WITHOUT CONTRAST HISTORY: word finding difficulty, r/o stroke TECHNIQUE: Multiplanar multisequence MRI of the brain was performed without the use of contrast. COMPARISON STUDY: None. FINDINGS: There are no areas of restricted diffusion to suggest acute infarction. The midline structu res are intact. There is no mass, hematoma, midline shift. The major vascular flow-voids at the skull base are well maintained. Widening of the central sulcus at the left high convexity which measures 3 .4 x 2.3 cm. This likely represents an arachnoid cyst. Mucosal thickening within ethmoid air cells op acified left frontal sinus. The mastoid air cells are clear. Patchy periventricular white matter T2 h yperintensity is nonspecific but favors mild microvascular ischemic change. There are are also mild a trophic changes within the brain. IMPRESSION: 1. No acute infarct. 2. No acute intracranial hemorrhage. 3. Atrophy and microvascular ischemic changes. ACT 112: Negative or not required by law. Electronically signed by: Mani Ngo M.D. 04/21/2021 7:32 AM
[2021-04-21] MEDS ORDERED: ENOXAPARIN INJ 40 MG/0.4 ML SYR SQ SCH (09:00)
[2021-04-21] MEDS ORDERED: SERTRALINE HCL 50 MG TABLET PO SCH (09:00)
[2021-04-21 09:53] LABS: Hematocrit (blood only) 35.7 % (37-47); Hemoglobin 11.1 g/dL (12.0-16.0); Mean Corpuscular Hemoglobin 29.8 pg (25-34); Mean Corpuscular Hgb Conc 31.1 g/dL (32-36); RDW Standard Deviation 49.5 fL (36.4-46.3); Red Blood Count 3.72 M/uL (4.2-5.4); White Blood Count 5.35 K/uL (4.8-10.8)
[2021-04-21 09:54] LABS: Mean Platelet Volume 9.9 fL (7.4-10.4); Platelet Count 255 K/uL (130-400)
[2021-04-21 10:23] LABS: Estimated Average Glucose 128 mg/dl; Hemoglobin A1C 6.1 % (4.5-5.6)
[2021-04-21 11:06] LABS: BUN Creatinine Ratio 17.1 (10-20); Chol HDL Ratio 4.3 (0-5); Creatinine Clr Calc Pharmacy 50.4 ml/min; Est GFR (African American) 92.9 ml/min; Est GFR (Non-African American) 80.1 ml/min; Magnesium 1.6 mg/dl (1.7-2.4); Phosphorus 3.2 mg/dl (2.5-4.9); Potassium 3.7 mmol/L (3.5-5.1)
--- NOTE | 2021-04-21 12:01 | Communication Note ---
Date of Service: April 21, 2021 Neurology has been asked by Dr. Yokasta Holman to assess Keysha Armenta, 85-year-old white right-handed woman who has had about a year and a half of uni lateral tremor and increasing bradykinesia and was started on Sinemet and low- dose by Dr. Dylon Ortiz probably a year or so ago. She also has rheumatoid arthritis a lot of musculoskeletal pain and was already on Cymbalta and by our rheumatology department and at the last visit with Dr. Day back in January her Sinemet was increased from 1-1/2 of the 25/100 mg Sinemet 3 times a day to 2 tablets 3 times a day and 20 mg additional Cymbalta was given to her It appears that her Parkinson's got worse in the sense that she would have frequent falls and sounds like some of this was precipitated by orthostasis and through a series of communications all her medications including Cymbalta and Sinemet were discontinued in late March She has had no further falls but her walking has gotten worse she has had more freezing her tremor is worse but she feels overall better and unfortunately has had episodes of speech arrest and today in conversation clearly has some cognitive impairment with a lot of tangential thinking and difficulty keeping her medications and physicians straight She was evaluated for stroke with a negative MRI which does show some white matter disease, negative CT angiography studies and an echocardiogram which is pending Home medications include acetaminophen atenolol furosemide losartan meloxicam and sertraline Other issues include hypomagnesemia hypertension stage III renal disease and diabetes Review of systems from the patient is a little difficult to obtain but she denies any recent headaches fever sweats chills does admit to having word finding problems and memory issues and admits to having trouble with walking increasing tremor but has had no more falls and no more episodes of what sounds like orthostasis when she stands up Exam shows a blood pressure 163/72 pulse 54 respirations are 20 she is afebrile oxygen saturations are 95% on room air She is awake alert oriented but a little disorganized in terms of the names of her physicians and exactly what medication she was taking and really cannot tell me how long she has had the Parkinson's. Her facies are little frozen there is a positive Myerson sign her speech is a little monotonous but has good volume and is a clear resting tremor of the right more than left hand and a little overall bradykinesia but I did not get her up to walk as she was in the middle of dinner and was able to use her utensils well. Reflexes were generally hypoactive. Strength appeared to be good may been a vibratory loss over the lower extremities but a detailed sensory examination was not performed At this point I think she should be managed on an outpatient basis and frankly I think some low-dose Sinemet should be restarted to see if she will have a response to that without what sounds like orthostasis and frankly I would go very gradually starting her back on 1/ tablet of Sinemet 25 100 with each meal starting with breakfast for a week and breakfast and lunch for a week and then breakfast lunch and dinner and would have her evaluated by Dr. Ortiz or Shaniqua Renteria PA-C on an outpatient basis within the next few weeks I do not see any reason to keep her in the hospital as the internal medicine group feels there is a need but I would suggest that orthostatic blood pressures be checked while she is here and that she be assessed by physical therapy to see how stable he feels she is in terms of her walking It is possible that she might need an inpatient rehabilitation stay or stay at an extended care facility with rehabilitation potential If this proves to be the discharge plan then the slow initiation of Sinemet as outlined above could be performed in that institution I am going to sign off the case at this point and will communicate my thoughts with Dr. Holman and will arrange for follow-up to be done in our office once I get back there on Friday Arnulfo Zuniga MD
[2021-04-21] MEDS ORDERED: STROKE PATIENT DISCHARGE STA (16:53)
[2021-04-21] MEDS: MAGNESIUM SULFATE / D5W 1 GM/100 ML BAG IV SCH ×2 (17:21→18:59)
[2021-04-21] MEDS ORDERED: ATENOLOL 50 MG TABLET PO SCH (21:00)
--- NOTE | 2021-04-22 18:06 | Electrocardiogram Report ---
Test Reason : Blood Pressure : / mmHG Vent. Rate : 064 BPM Atrial Rate : 064 BPM P-R Int : 196 ms QRS Dur : 098 ms QT Int : 428 ms P-R-T Axes : 047 -55 039 degrees QTc Int : 441 ms Normal sinus rhythm Left anterior fascicular block Voltage criteria for left ventricular hypertrophy Anteroseptal infarct , age undetermined Abnormal ECG No previous ECGs available Confirmed by Timothy Haynes ([id number]) on 04/22/2021 6:05:44 PM Referred By: REFERRED SELF Confirmed By:Timothy Haynes
--- NOTE | 2021-04-22 18:25 | Electrocardiogram Report ---
Test Reason : Blood Pressure : / mmHG Vent. 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
--- NOTE | 2021-05-01 09:10 | Discharge Summary ---
Date of Service April 21, 2021 Admission HPI Per Admitting Provider 85 yo F with Parkinsons disease presented from home via ambulance after acute weakness and confusion today noted by family along with difficulty finding some of her words. Recurrent falls have also been an issue. She reports receiving the Moderna booster shot in the last two weeks and also had this series to begin with last year. She reports some weakness and headache in response to the vaccine that improved but she never stopped feeling slightly weak. Son is at bedside and reports her shuffling gait has worsened. She has a clear resting tremor during this interview. No other diccifulty swallowing, headache, acute visual changes, difficulty breathing, chest pain, abdominal pain, UTI symptoms or other issues reported today. Medication changes recently include stopping HCTZ because of "puffiness in her feet" and starting furosemide 40mg daily. Although her Sinemet was increased from twice daily to thrice daily in Jan 2021 by her neurologist, her PCP just took her off of sinemet completely 03/30/21. She also stopped atorvastatin 20mg daily because of myalgias from statin intolerance, and duloxetine 60mg daily was stopped without a wean. Stopping Sinemet and Cymbalta was ok with her neurologi st per a [employer] message on 03/13. At that time she was reporting worsening tremors and felt this was due to one of these medications. Potassium and Mag are noted to be low on workup. Head CT is negative and CXR is clear. EKG with LAFB, sinus rhythm. Troponin is negative. CTA head and neck are pending. UA is clear. She confirms she is a DNR and can explain to me what that means. Admission Exam Per Admitting Provider CONSTITUTIONAL: WNWD, vitals as above, generally well-appearing, NAD EYES: EOMI bilaterally, PERRL, normal conjunctivae, no scleral icterus, ENT: external ear and nose normal, oropharynx clear, MMM NECK: trachea midline, RESPIRATORY: clear to auscultation bilaterally, no crackles, rales or wheezes, normal respiratory effort CARDIOVASCULAR: regular rate and rhythm, S1 and 2 heard without murmurs, gallops or rubs, no JVD, no peripheral edema, no carotid bruits CHEST: inspection of chest was normal GASTROINTESTINAL: soft, nontender, ND, no guarding MUSCULOSKELETAL: strength 5/5 throughout, head is normocephalic and atraumatic, neck supple, normal palpation of chest wall without tenderness SKIN: warm and dry, NEUROLOGIC: No facial palsy, no dysarthria. Touch, pain and proprioception normal. CN 2-12 grossly intact, no sensory deficit, normal cognition, normal sp eech, +tremor at rest PSYCHIATRIC: alert cooperative and oriented to person, and pamela but cannot verbalize where she is located. Principal Diagnosis Stroke-like symptoms: Weakness: Hypomagnesemia: Hypokalemia: Parkinsons disease: HTN (hypertension): Discharge Exam General- No acute distress Head- atraumatic Eyes- PERRL, EOMI, ENT- oropharynx clear Neck- supple, no JVD Lungs- clear to auscultation Heart- regular rhythm; no murmur Abdomen- normal bowel sounds, soft, nontender Extremities- no calf tenderness Neuro- alert, awake, +tremor, PERRL, EOMI; no facial palsy; no dysarthria Skin- warm & dry Discharge Data Allergies Allergy/AdvReac Type Severity Reaction Status Date / Time Sulfa (Sulfonamide Allergy Intermediate Rash Verified 04/20/21 21:19 Antibiotics) carbidopa AdvReac Intermediate FELL Verified 04/20/21 21:24 SEVERAL TIMES levodopa AdvReac Intermediate FELL Verified 04/20/21 21:24 SEVERAL TIMES nitrofurantoin AdvReac Intermediate NAUSEA/VOMI Verified 04/20/21 21:19 TING Consultations 04/20/21 21:52 ED Decision to Admit Stat 04/20/21 22:48 Consult Neurology Routine Ordered Studies 04/20/21 19:34 CT head/brain wo con Stat 04/20/21 21:29 CT angio head w con Urgent CT angio neck with con Urgent 04/21/21 22:44 MR brain wo con Routine Brain MRI WITHOUT CONTRAST HISTORY: word finding difficulty, r/o stroke TECHNIQUE: Multiplanar multisequence MRI of the brain was performed without the use of contrast. COMPARISON STUDY: None. FINDINGS: There are no areas of restricted diffusion to suggest acute infarction. The midline structures are intact. There is no mass, hematoma, midline shift. The major vascular flow-voids at the skull base are well maintained. Widening of the central sulcus at the left high convexity which measures 3.4 x 2.3 cm. This likely represents an arachnoid cyst. Mucosal thickening within ethmoid air cells opacified left frontal sinus. The mastoid air cells are clear. Patchy periventricular white matter T2 hyperintensity is nonspecific but favors mild microvascular ischemic change. There are are also mild atrophic changes within the brain. IMPRESSION: 1. No acute infarct. 2. No acute intracranial hemorrhage. 3. Atrophy and microvascular ischemic changes. ACT 112: Negative or not required by law. Electronically signed by: Mani Ngo M.D. 04/21/2021 7:32 AM Dictated:04/21/21 0729 Transcribed: 04/21/21728 HEAD & NECK CTA HISTORY: Confusion. word finding difficulty, weakness TECHNIQUE: Multiaxial CT images of the head were performed following the intravenous administration of contrast to evaluate the major cerebral vessels. Multiaxial CT images of the neck were also performed following the intravenous administration of contrast to evaluate the major cervical vessels. Maximum intensity projection images were also obtained. A dose lowering technique was utilized adhering to the principles of ALARA. COMPARISON: Head CT 04/21/2021. FINDINGS: Visualized intracranial internal carotid arteries, distal vertebral arteries, and basilar artery are widely patent. There is no significant stenosis, occlusion, or aneurysm seen within the bilateral ACAs, MCAs, or nuclear medicine pet ct technologist. There is a persistent left posterior circulation. Mild calcified plaque within the bilateral carotid siphons. The major dural venous sinuses appear patent. The aortic arch and proximal great vessels are widely patent. There is no significant stenosis, occlusion, or dissection identified within the bilateral common carotid, internal carotid, or vertebral arteries. Mild calcified plaque within the left carotid bifurcation. IMPRESSION: 1. No significant stenosis, occlusion, or aneurysm within the pauma of Barrios. 2. No significant stenosis, occlusion, or dissection identified within the car otid or vertebral arteries. ACT 112: Negative or not required by law. Electronically signed by: Mani Ngo M.D. 04/21/2021 6:51 AM Dictated:04/21/21 0647 Transcribed: 04/21/21 0647 HEAD & NECK CTA HISTORY: Confusion. word finding difficulty, weakness TECHNIQUE: Multiaxial CT images of the head were performed following the intravenous administration of contrast to evaluate the major cerebral vessels. Multiaxial CT images of the neck were also performed following the intravenous administration of contrast to evaluate the major cervical vessels. Maximum intensity projection images were also obtained. A dose lowering technique was utilized adhering to the principles of ALARA. COMPARISON: Head CT 04/21/2021. FINDINGS: Visualized intracranial internal carotid arteries, distal vertebral arteries, and basilar artery are widely patent. There is no significant stenosis, occlusion, or aneurysm seen within the bilateral ACAs, MCAs, or nuclear medicine pet ct technologist. There is a persistent left posterior circulation. Mild calcified plaque within the bilateral carotid siphons. The major dural venous sinuses appear patent. The aortic arch and proximal great vessels are widely patent. There is no significant stenosis, occlusion, or dissection identified within the bilateral common carotid, internal carotid, or vertebral arteries. Mild calcified plaque within the left carotid bifurcation. IMPRESSION: 1. No significant stenosis, occlusion, or aneurysm within the pauma of Barrios. 2. No significant stenosis, occlusion, or dissection identified within the carotid or vertebral arteries. ACT 112: Negative or not required by law. Electronically signed by: Mani Ngo M.D. 04/21/2021 6:51 AM Dictated:04/21/21646 Transcribed: 04/21/21646 XR chest 1V portable CLINICAL HISTORY: weakness TECHNIQUE: Single frontal radiograph of the chest was obtained. Comparison: None available at the time of this dictation. FINDINGS: No lines and tubes are seen. The cardiomediastinal silhouette is normal. The lungs are clear. No evidence of pleural effusion or pneumothorax. IMPRESSION: No acute chest disease. ACT 112: Negative or not required by law. Electronically signed by: Von Roche M.D. 04/20/2021 8:03 PM Dictated:04/20/212001 Transcribed: 04/20/212001 CT head/brain wo con CLINICAL HISTORY: weakness, falls, confusion at times Technique: Contiguous axial CT images of the head were acquired from the base of the skull to the vertex without intravenous contrast administration. Images were viewed in brain, subdural and bone windows. Automated dose lowering techniques and/or adjustment according to patient size were utilized for this exam. Comparison: None available at the time of this dictation. Findings: Areas of decreased attenuation are present in the periventricular and subcortical white matter bilaterally consistent with small vessel ischemic disease. Generalized cerebral atrophy with commensurate enlargement of the ventricles, sulci, and cisterns is also present. There is no acute intracranial hemorrhage or evidence of acute territorial infarction. No shift of the midline structures, mass effect, or extra-axial abnormalities are shown. Ather osclerotic calcifications are present in the intracranial segments of the internal carotid arteries. There is a likely subarachnoid cyst in the left frontoparietal region. Imaged portions of the paranasal sinuses and mastoid air cells are clear. The orbits appear normal. There are no acute fractures of the calvaria or scalp swelling. Impression: No acute intracranial hemorrhage, no evidence of acute territorial infarction or other acute intracranial disease process. ACT 112: Negative or not required by law. Electronically signed by: Von Roche M.D. 04/20/2021 8:57 PM Dictated:04/20/212055 Transcribed: 04/20/212055 Hospital Course (1) Stroke-like symptoms: New word finding difficulty that began today along with some intermittent confusion. This is new from her baseline. She has a h/o Parinsons disease and has stopped Sinemet two weeks ago. Also stopped Cymbalta 60mg. Also changed HCTZ to Lasix PRN. Multiple recurrent falls at home possibly a result of worsening Parkinson's, or med changes or both. Still has some slight word finding issues, however, she is doing very well remembering this and vocalizing them right now. CT head is negative but we are waiting on the angiograms. MRI brain showed no acute intracranial abnormality ECHO showed no evidence of septal atrial defect. No wall motion abnormality. EF 60 to 65% Case discussed with Neuro and no more testing needed Pt and and family are not interested to go to rehab even if PT/OT will recommend it Pt is very anxious to go home and son wants to take her home (2) Weakness: Acute weakness. Patient feels recent Moderna booster may have something to do with this. Recommen (3) Hypomagnesemia: Mag 1.6 today Mg replaced (4) Hypokalemia: K 3.3. on admission K 3.7 today (5) Parkinsons disease: Off sinement since two weeks ago. Neuro to evaluate. (6) HTN (hypertension): BP med resumed (7) CKD stage 3 due to type 1 diabetes mellitus: chronic, at baseline. Cont to monitor. (8) DVT prophylaxis: Lovenox. DNR-confirmed with she and her son on admission. Disposition Discharge home today Continue PT/OT outpatient Total Time Total Time Spent Total Time Spent (In Minutes): 35 minutes Discharge Plan Discharge Items Patient Disposition: Home - Self-Care Reason For Visit: WEAKNESS, DIFFICULTY WITH WORD FINDING Discharge Diagnosis: Stroke-like symptoms: Weakness: Hypomagnesemia: Hypokalemia: Parkinsons disease: HTN (hypertension): Activity: Resume your previous activity Non-emergency contact: Primary Care Provider Call non-emergency contact if: you have any medication questions Follow-up/Referrals: Keyanna Fink MD [Primary Care Provider] - Diet: Heart Healthy Addtl Attending Provider Instructions: Follow up with your primary care provider within 1 week (office will call you for the appointment) Follow with your neurologist in 3 to 4 weeks (office will call you for the appointment) Continue physical and occupational therapy Starting on Sinemet 1/2 tablet daily for 1 week; then on week 2 to take 1/2 tablet in the morning and 1/2 tablet in the afternoon, then week 3 to take three times a day (please take the Sinemet with meal) Fall precaution Pending Studies at Discharge: No Stand-Alone Forms: My [employer], Smoking Cessation Medications and DC Order Prescriptions: New carbidopa-levodopa [Sinemet] 25-100 mg tablet 0.5 tab PO UD Qty: 90 RF: 0 Continued losartan 50 mg tablet 50 mg PO QAM RF: 0 furosemide 40 mg tablet 40 mg PO DAILY PRN (Reason: EDEMA IN FEET) RF: 0 meloxicam 7.5 mg tablet 7.5 mg PO DAILY PRN (Reason: Pain) RF: 0 sertraline 25 mg tablet 25 mg PO QAM RF: 0 atenolol 50 mg tablet 50 mg PO QPM RF: 0 acetaminophen 650 mg Tablet Extended Release 650 mg PO Q12H PRN (Reason: Pain) RF: 0 Discharge Orders: Discharge Order (Routine); Ordered 04/21/21 Ordered By: Deric Gomes Admission Data Admit Date/Time: 04/20/21 22:03 Attending Provider: Deric Gomes Admit Provider: Yokasta Holman Primary Care Provider: Keyanna Fink Other Interventions: Discharge Summary Assessment (RN) Last Done: 04/21/21 16:19
== END 2021-04-21 20:06 | disposition home or self-care (01) | DRG 948 ==
LOC: ED 19:09 → EDINP 22:03 → SUATTDRO 22:03 → 2W 04-21 00:19
DX: M06.9 Rheumatoid arthritis, unspecified; R41.0 Disorientation, unspecified; M48.061 Spinal stenosis, lumbar region without neurogenic claudication; R25.1 Tremor, unspecified; M81.0 Age-related osteoporosis without current pathological fracture; M51.36 Other intervertebral disc degeneration, lumbar region; N18.30 Chronic kidney disease, stage 3 unspecified; R25.8 Other abnormal involuntary movements; E87.6 Hypokalemia; E78.5 Hyperlipidemia, unspecified; E10.22 Type 1 diabetes mellitus with diabetic chronic kidney disease; Z79.899 Other long term (current) drug therapy; R53.1 Weakness; K21.9 Gastro-esophageal reflux disease without esophagitis; H40.1190 Primary open-angle glaucoma, unspecified eye, stage unspecified; I12.9 Hypertensive chronic kidney disease with stage 1 through stage 4 chronic kidney disease, or unspecified chronic kidney disease; G20 Parkinson's disease; Z88.2 Allergy status to sulfonamides; E83.42 Hypomagnesemia; Z66 Do not resuscitate

== ENCOUNTER 2021-05-02 11:26 | Inpatient (IN) ==
[2021-05-02] MEDS ORDERED: LIDOCAINE/EPINEPH/TETRACAINE 1 EA SYR EXT ONE (12:07)
--- NOTE | 2021-05-02 12:53 | CT Scan Report ---
CT cervical spine wo con CT DOSE: 463.74 mGycm CLINICAL HISTORY: 85 years-old Female with fall. Acute head and neck injury status post fall COMPARISON: Head CT of same day and also 04/20/2021 TECHNIQUE: Multiple axial CT images of the cervical spine were obtained without contrast. A dose low ering technique was utilized adhering to the principles of ALARA. FINDINGS: Straightening of the normal cervical lordosis. Severe C1-C2 degeneration. Advanced anterior endplate spondylitic spurring and C4-C6. Moderate to severe multilevel intervertebral disc space anneliese rowing with degenerative related partial bony fusion of several levels. Posterior disc osteophyte com plex formations are most pronounced at the C4-C5 interspace. Grade 1 anterolisthesis C4 on C5 is like ly degenerative. No acute fracture or subluxation. Multilevel neuroforaminal narrowing. No prevertebral edema. Calcified plaque of the carotid arteries. Lung apices are clear without pneumo thorax. IMPRESSION: No acute fracture or subluxation. ACT 112: Negative or not required by law. The above report was generated using voice recognition software. It may contain grammatical, syntax o r spelling errors. Electronically signed by: Juan Ty M.D. 05/02/2021 12:52 PM
--- NOTE | 2021-05-02 12:56 | CT Scan Report ---
HEAD CT NONCONTRAST CT DOSE: 638.56 mGycm HISTORY: fall TECHNIQUE: Multiaxial CT images of the head were performed without the use of intravenous contrast. A utomated exposure control was utilized for this study. A dose lowering technique was utilized adheri ng to the principles of ALARA. Comparison: Head CT 04/20/2021. Findings: Chronic opacification of the left frontal sinus, unchanged. The mastoid air cells are clear . Right supraorbital and right frontal scalp swelling. Stable widening within the central sulcus at t he left high convexity. This favors an arachnoid cyst. The calvarium and skull base are intact. There is no mass, hematoma, midline shift, acute infarct. White matter hypodensity is nonspecific but sugg estive of microvascular ischemic change. The ventricles and sulci demonstrate mild age-related involu tional changes. Impression: 1. No acute intracranial abnormality. 2. Right frontal scalp injury. 3. Additional findings as described above. ACT 112: Negative or not required by law. Electronically signed by: Mani Ngo M.D. 05/02/2021 12:55 PM
--- NOTE | 2021-05-02 13:02 | Emergency Department Note ---
Impression & Plan Fall, CHI (closed head injury), Forehead laceration ED Provider Note INFORMANT: Patient and family ED PROVIDER(S): Arnulfo Dominguez MD CHIEF COMPLAINT: Fall PLAN: Disposition: Admitted Condition: Good Outpatient prescription management: none Referral: None MEDICAL DECISION MAKING: Patient presented because of a fall and head injury. She underwent CT imaging which was negative. Her laceration was repaired by Suhail Saldana PA-C. Please see his note. Case management was contacted by [facility] outpatient services and there was concern about the patient ability to be cared for at home. Family notes that her Parkinson's and situation is getting much worse. [facility] was contacted and they cannot take the patient at this time. Case management recommended inpatient management to further assist the transition. Laboratory testing was performed. Covid testing was negative. No abnormalities on labs. Patient had a consultation placed with [facility] hospitalist service. She was evaluated in ER admitted for further management. Triage Nursing notes reviewed and agree them. Vital Signs: reviewed and remarkable for no significant abnormalities Differential diagnosis: Concussion, contusion, fracture, subdural hematoma, epidural hematoma, intraparenchymal hemorrhage, as well as other pathologies. Diagnostics interpreted by me: ECG: none Cardiac Monitoring: none Imaging studies: Head CT: A noncontrast CT scan of the head was performed and was negative for tumor, fracture, intracranial hemorrhage, or other acute pathology. Spine CT negative for acute pathology. HPI: The patient is a 85 year old female who presents to the Emergency Room with complaints of a fall. This started just prior to arrival and is from getting out of bed. She lost her balance and struck the right side of her forehead. She suffered a laceration. She has been following frequently per the family. She has Parkinson's. They have been adjusting her medications and her primary is working on getting her placed at [facility]. The patient also notes the following associated symptoms, generalized weakness, mild neck pain on the sides. The patient has been given no medication prehospital for relieving factors. Current pain is rated as 0/10. Pt denies LOC, headache, fevers, chills, diaphoresis, visual changes, chest pain, breathing difficulties, nausea, vomiting, abdominal pain, back pain, melena, hematochezia, urinary symptoms, numbness, lymphadenopathy, rash, or other complaints. ROS: See above HPI for pertinent positives & negatives. A total of 10 systems reviewed and were otherwise negative. PAST MEDICAL HISTORY:See Below , Parkinson's PAST SURGICAL HISTORY:See Below, FAMILY HISTORY:See Below SOCIAL HISTORY:See Below, retired HOME MEDICATIONS:See Below ALLERGIES:See Below VITALS:See Below PHYSICAL EXAMINATION: GENERAL: Awake, alert, well-appearing, in no distress HENT: Normocephalic. Laceration to right forehead noted. Contusion over the right eyebrow noted as well. Oropharynx unremarkable. EYES: Normal conjunctiva. Sclera non-icteric. NECK: Inspection normal. Non-tender. Supple. No nuchal rigidity. FROM. No masses. RESPIRATORY: Clear to auscultation. No wheezes. No rales. Normal respiratory ef fort. CARDIAC: Normal rate. Normal rhythm. No murmurs. No rubs. Extremities warm and well perfused. Pulses equal. No JVD. GI: Soft, non-distended. No tenderness to palpation. No rebound or guarding. No masses. RECTAL: Deferred. MUSCULOSKELETAL: Upper and lower extremities are atraumatic. Chest examination reveals no tenderness. The back is symmetrical on inspection without obvious abnormality. There is no CVA tenderness to palpation. No joint edema. LOWER EXTREMITIES: Calves are equal size bilaterally and non-tender. No edema. No discoloration. NEURO: Normal sensorium. Parkinsonian tremor present. No focal sensory or motor deficits noted. SKIN: No rash or jaundice noted. Arnulfo Dominguez MD Past Med/Surg History Medical History (Updated 05/02/21 @ 15:06 by Shea De La Cruz PA-C) CKD (chronic kidney disease), stage III Degeneration of cervical intervertebral disc Depression Dyslipidemia Female stress incontinence GERD (gastroesophageal reflux disease) History of colon polyps HTN (hypertension) Hypercalcemia Osteoarthritis Parkinsons disease Postmenopausal atrophic vaginitis Primary open angle glaucoma Senile osteoporosis Slow transit constipation Spinal stenosis of lumbar region Statin intolerance Type 2 diabetes mellitus Surgical History H/O cataract removal with insertion of prosthetic lens H/O colonoscopy History of esophagogastroduodenoscopy (EGD) Family History Father Cancer Unknown No problems noted. Uncle Pancreatic cancer Social History (Updated 05/02/21 @ 15:26 by Shea De La Cruz PA-C) Smoking Status: Never smoker Hx Alcohol Use: No Hx Substance Use: No Preferred Language: Tanzanian Communication Ability: Effective Fountain Clerk Required: No Beliefs That Will Affect Care: None marital status: / Current Living Situation: Family Current Living Situation Comment: Son, Daughter in Law, Grandson current occupational status: retired Feels Safe at Home: Yes Assistive Devices: Walker Allergies Allergies Allergy/AdvReac Type Severity Reaction Status Date / Time Sulfa (Sulfonamide Allergy Intermediate Rash Verified 05/02/21 16:15 Antibiotics) carbidopa AdvReac Intermediate FELL Verified 05/02/21 16:15 SEVERAL TIMES levodopa AdvReac Intermediate FELL Verified 05/02/21 16:15 SEVERAL TIMES nitrofurantoin AdvReac Intermediate NAUSEA/VOMI Verified 05/02/21 16:15 TING Home Meds Home Medications Medication Instructions Recorded Confirmed acetaminophen 650 mg 650 mg PO QDD 04/20/21 05/02/21 tablet,extended release atenolol 50 mg tablet 50 mg PO QDL 04/20/21 05/02/21 furosemide 40 mg tablet 40 mg PO DAILY PRN 04/20/21 05/02/21 losartan 50 mg tablet 50 mg PO QAM 04/20/21 05/02/21 meloxicam 7.5 mg tablet 7.5 mg PO DAILY PRN 04/20/21 05/02/21 sertraline 25 mg tablet 25 mg PO QDD 04/20/21 05/02/21 carbidopa 25 mg-levodopa 100 mg 0.5 tab PO .BID AT 0800 & 1200 05/02/21 05/02/21 tablet (Sinemet) Results & Data (ED) Vital Signs Vital Signs - 24 hr 05/02/21 11:31 05/02/21 14:42 Temperature 36.5 C Temperature Source Oral Pulse Rate 61 Respiratory Rate 14 Respiratory Depth Normal Blood Pressure 138/56 L Blood Pressure Mean 83 Pulse Oximetry 97 96 Oxygen Delivery Method Room Air Room Air Sepsis Recent Fever Within 48 Hours No Sepsis New/Unexplained Change in Mental Status No Sepsis Action Taken by Nursing No Action Required Laboratory Data Result diagrams: 05/02/21 14:36 05/02/21 16:09 Lab Results 05/02/21 05/02/2105/02/22 Range/Units 14:35 14:36 14:36 WBC 8.43 (4.8-10.8) K/uL RBC 4.45 (4.2-5.4) M/uL Hgb 13.5 (12.0-16.0) g/dL Hct 42.7 (37-47) % MCV 96.0 (80-100) fL MCH 30.3 (25-34) pg MCHC 31.6 L (32-36) g/dL RDW Std Deviation 50.5 H (36.4-46.3) fL RDW Coeff of Joe 14.3 (11.5-14.5) % Plt Count 271 (130-400) K/uL MPV 10.0 (7.4-10.4) fL Immature Gran % (Auto) 0.2 % Neut % (Auto) 73.1 % Lymph % (Auto) 15.8 % [place] % (Auto) 9.5 % Eos % (Auto) 0.9 % Baso % (Auto) 0.5 % Neut # (Auto) 6.16 (1.4-6.5) K/uL Lymph # (Auto) 1.33 (1.2-3.4) K/uL [place] # (Auto) 0.80 H (0.11-0.59) K/uL Eos # (Auto) 0.08 (0-0.5) K/uL Baso # (Auto) 0.04 (0-0.2) K/uL Immature Gran # (Auto) 0.02 (0.00-0.02) K/uL Platelet Estimate Normal (Normal) Polychromasia 1+ Poikilocytosis Present Sodium 140 (136-145) mmol/L Potassium (3.5-5.1) mmol/L Chloride 104 (98-107) mmol/L Carbon Dioxide 26 (21-32) mmol/L Anion Gap 10 (3-11) BUN 16 (6-23) mg/dl Creatinine 0.73 (0.6-1.2) mg/dl Est Cr Clr Drug Dosing 47.7 ml/min Est GFR ( Amer) 88.3 ml/min Est GFR (Non-Af Amer) 76.2 ml/min BUN/Creatinine Ratio 21.9 H (10-20) Glucose 104 H (70-99(Fasting)) mg/dl Calcium 10.0 (8.5-10.1) mg/dl Total Bilirubin 0.5 (0.2-1.0) mg/dl AST (13-39) U/L ALT 5 L (7-52) U/L Alkaline Phosphatase 93 (34-104) U/L Total Protein 6.9 (6.0-8.3) gm/dl Albumin 4.3 (3.4-5.0) gm/dl Globulin 2.6 (2.5-4.0) gm/dl Albumin/Globulin Ratio 1.7 (0.9-2) TSH (0.300-4.500) uIu/ml SARS-CoV-2, RNA, NAAT NEGATIVE (NEGATIVE) 05/02/21 Range/Units 14:36 WBC (4.8-10.8) K/uL RBC (4.2-5.4) M/uL Hgb (12.0-16.0) g/dL Hct (37-47) % MCV (80-100) fL MCH (25-34) pg MCHC (32-36) g/dL RDW Std Deviation (36.4-46.3) fL RDW Coeff of Joe (11.5-14.5) % Plt Count (130-400) K/uL MPV (7.4-10.4) fL Immature Gran % (Auto) % Neut % (Auto) % Lymph % (Auto) % [place] % (Auto) % Eos % (Auto) % Baso % (Auto) % Neut # (Auto) (1.4-6.5) K/uL Lymph # (Auto) (1.2-3.4) K/uL [place] # (Auto) (0.11-0.59) K/uL Eos # (Auto) (0-0.5) K/uL Baso # (Auto) (0-0.2) K/uL Immature Gran # (Auto) (0.00-0.02) K/uL Platelet Estimate (Normal) Polychromasia Poikilocytosis Sodium (136-145) mmol/L Potassium (3.5-5.1) mmol/L Chloride (98-107) mmol/L Carbon Dioxide (21-32) mmol/L Anion Gap (3-11) BUN (6-23) mg/dl Creatinine (0.6-1.2) mg/dl Est Cr Clr Drug Dosing ml/min Est GFR ( Amer) ml/min Est GFR (Non-Af Amer) ml/min BUN/Creatinine Ratio (10-20) Glucose (70-99(Fasting)) mg/dl Calcium (8.5-10.1) mg/dl Total Bilirubin (0.2-1.0) mg/dl AST (13-39) U/L ALT (7-52) U/L Alkaline Phosphatase (34-104) U/L Total Protein (6.0-8.3) gm/dl Albumin (3.4-5.0) gm/dl Globulin (2.5-4.0) gm/dl Albumin/Globulin Ratio (0.9-2) TSH 1.986 (0.300-4.500) uIu/ml SARS-CoV-2, RNA, NAAT (NEGATIVE) Administered Medications Atenolol (Atenolol 50 Mg Tablet) 50 mg PO QPM TERESA Stop: 06/01/21 20:59 Last Admin: 05/02/21 20:11 Dose: 50 mg Documented by: [id number] Carbidopa/Levodopa (Carbidopa/Levodopa 25/100mg Tab) 0.5 tab PO BIDM TERESA Stop: 05/04/21 17:01 Last Admin: 05/02/21 19:40 Dose: 0.5 tab Documented by: [id number] Enoxaparin Sodium (Enoxaparin Inj 30 Mg/0.3 Ml Syr) 30 mg SQ Q24H TERESA Stop: 06/01/21 19:59 Last Admin: 05/02/21 19:41 Dose: 30 mg Documented by: [id number] Discontinued Medications Lidocaine (Lidocaine/Epineph/Tetracaine 1 Ea Syr) 1 ea EXT NOW ONE Stop: 05/02/21 12:08 Last Admin: 05/02/21 12:22 Dose: 1 ea Documented by: [id number] Lidocaine HCl (Xylocaine 1%/Sod Bicarb 20 Ml Vial) 20 ml INFIL NOW ONE Stop: 05/02/21 13:34 Last Admin: 05/02/21 13:50 Dose: 20 ml Documented by: [id number] Imaging Data Radiologist's Impression: Cervical Spine CT 05/02/21 12:07 CT cervical spine wo con CT DOSE: 463.74 mGycm CLINICAL HISTORY: 85 years-old Female with fall. Acute head and neck injury status post fall COMPARISON: Head CT of same day and also 04/20/2021 TECHNIQUE: Multiple axial CT images of the cervical spine were obtained without contrast. A dose lowering technique was utilized adhering to the principles of ALARA. FINDINGS: Straightening of the normal cervical lordosis. Severe C1-C2 degeneration. Advanced anterior endplate spondylitic spurring and C4-C6. Moderate to severe multilevel intervertebral disc space narrowing with degenerative related partial bony fusion of several levels. Posterior disc osteophyte complex formations are most pronounced at the C4-C5 interspace. Grade 1 anterolisthesis C4 on C5 is likely degenerative. No acute fracture or subluxation. Multilevel neuroforaminal narrowing. No prevertebral edema. Calcified plaque of the carotid arteries. Lung apices are clear without pneumothorax. IMPRESSION: No acute fracture or subluxation. ACT 112: Negative or not required by law. The above report was generated using voice recognition software. It may contain grammatical, syntax or spelling errors. Electronically signed by: Juan Ty M.D. 05/02/2021 12:[address] 05/02/21 12:[address] DOSE: 638.56 mGycm HISTORY: fall TECHNIQUE: Multiaxial CT images of the head were performed without the use of intravenous contrast. Automated exposure control was utilized for this study. A dose lowering technique was utilized adhering to the principles of ALARA. Comparison: Head CT 04/20/2021. Findings: Chronic opacification of the left frontal sinus, unchanged. The mastoid air cells are clear. Right supraorbital and right frontal scalp swell ing. Stable widening within the central sulcus at the left high convexity. This favors an arachnoid cyst. The calvarium and skull base are intact. There is no mass, hematoma, midline shift, acute infarct. White matter hypodensity is nonspecific but suggestive of microvascular ischemic change. The ventricles and sulci demonstrate mild age-related involutional changes. Impression: 1. No acute intracranial abnormality. 2. Right frontal scalp injury. 3. Additional findings as described above. ACT 112: Negative or not required by law. Electronically signed by: Mani Ngo M.D. 05/02/2021 12:55 PM Discharge Plan Visit Data Chief Complaint: Laceration/Cut (Suture/Dermabond) Stated Complaint: FALL, LAC TO FOREHEAD, HEAD PAIN ED Provider: Arnulfo Dominguez Discharge Problem: Fall, CHI (closed head injury), Forehead laceration Patient Disposition: Admitted As Inpatient Discharge Instructions Interventions: ED Discharge Assessment Last Done: 05/02/21 17:01
[2021-05-02] MEDS ORDERED: XYLOCAINE 1%/SOD BICARB 20 ML VIAL INFIL ONE (13:33)
--- NOTE | 2021-05-02 14:02 | Emergency Department Note ---
ED Visit Note Patient was seen and evaluated by Dr. Dominguez. I was asked to perform wound closure of the patient's right forehead/scalp laceration. This measured 3 cm in length. This does traverse deep to the dermis into the subcutaneous tissue. No significant musculature or bony injury noted. No significant disruption of the deep structures. No foreign body. Verbal consent was obtained prior to performing the procedure. Let gel was initially applied. This provided a fair amount of anesthetization. To help with further pain control, four cc of 1% buffered lidocaine without epinephrine was used to anesthetize the forehead laceration. The wound was cleansed and prepped in the typical sterile fashion utilizing normal saline and Betadine. The wound was sterilely draped. Once proper anesthetization was established, the wound was further examined and demonstrated wound as described above without foreign body or active bleeding. The wound was copiously irrigated with normal saline and Betadine. The wound was closed using 2 simple, 5-0 Vicryl sutures to close the deeper layers followed by 6 simple, 6-0 nylon sutures with the wound edges being well approximated. Patient tolerated the procedure well. No complications were met. The wound was cleansed and dressed with a Bacitracin dressing. Please refer to further documentation regarding her stay.
--- NOTE | 2021-05-02 14:55 | History & Physical Report ---
Date of Service May 02, 2021 Assessment & Plan (1) Ambulatory dysfunction: (2) Recurrent falls: (3) Parkinsons disease: Plan: Patient is 85-year-old female with PMH Parkinson's, history of recurrent falls, HTN, CKD III, depression presented to ER with complaint of fall today resulting in hitting head and head laceration. Denies LOC or other injury. At baseline mental status per son. Increased falls at home, likely secondary to Parkinson's, possible orthostatic hypotension CT Head and CT C-spine: no acute findings Obtain orthostatic vital signs UA pending Fall precautions Previously was off Sinemet for 2 weeks, however was restarted 04/21/21 at 1/2 tab daily x 1 week then 1/2 tab BID x 1 week and then to 1/2 tab TID. Pt currently on 1/2 tab BID Continue Sinemet with plans to increase to TID dosing on 05/05 PT/OT eval Will need case management assistance, as patient and family are looking for placement at [facility] and report are on wait list Follows with neurology - Dr Ortiz HEAD LACERATION repaired in ER with 6 sutures Will need suture removal in 7 days Monitor for signs of infection (4) CKD (chronic kidney disease), stage III: Plan: Cr: 0.7. Baseline Cr: ~1.0 Monitor renal functions (5) HTN (hypertension): Plan: Continue atenolol, losartan Has Lasix prn edema. Does not have significant edema currently so will hold and monitor (6) Depression: Plan: Continue sertraline DVT Prophylaxis Lovenox SQ DNR/DNI as per discussion with pt and pt's son Follows with Dr Romeo Wick for routine care Pt was seen and care coordinated with Dr Elmore. See addendum History of Present Illness Chief Complaint: Fall Primary Care Provider: Keyanna Wick MD Patient is 85-year-old female with PMH Parkinson's, history of recurrent falls, HTN, CKD III, depression presented to ER with complaint of fall. History obtained from patient and assisted by patient's son. Patient son reports at baseline patient has problems with her memory and feels like she is at her baseline today. Patient with history hospitalization at [facility] 04/20/2021- for strokelike symptoms. MRI negative for acute stroke. Patient with noted ambulatory dysfunction and reported progressive weakness. At that time family was not considering rehab or placement. Patient had been off her Sinemet for 2 weeks prior to last admission however upon last hospital discharge was re- started on low-dose Sinemet and has slowly been tapering up. Patient has had 2 falls in the past 2 weeks. Patient reports several weeks ago was having dizziness with standing but doesn't think she was dizzy prior to fall today. Son states patient upon standing has a hard time starting to walk and then her feet get tangled and she loses her balance and falls. Does have walker at home. Today fell hitting her head causing head laceration which was repaired in ER. Denies LOC. Denies any other injury. Family report that they are getting to the point where they cannot safely care for patient at home and have been trying to get patient in to [facility] personal care and son reports they are on wait list. Denies fever/chills, diaphoresis, N/V/D/C, JENSEN, syncope, vision changes, neck pain, CP, SOB, orthopnea, palpitations, cough, sore throat, choking, otalgia, rhinorrhea, abdominal pain, paresthesias, extremity edema, rashes, urinary symptoms. Allergies Allergy/AdvReac Type Severity Reaction Status Date / Time Sulfa (Sulfonamide Allergy Intermediate Rash Verified 04/20/21 21:19 Antibiotics) carbidopa AdvReac Intermediate FELL Verified 04/20/21 21:24 SEVERAL TIMES levodopa AdvReac Intermediate FELL Verified 04/20/21 21:24 SEVERAL TIMES nitrofurantoin AdvReac Intermediate NAUSEA/VOMI Verified 04/20/21 21:19 TING Home Medications Medication Instructions Recorded Confirmed Type acetaminophen 650 mg 650 mg PO Q12H PRN 04/20/21 05/02/21 History tablet,extended release atenolol 50 mg tablet 50 mg PO QPM 04/20/21 05/02/21 History furosemide 40 mg tablet 40 mg PO DAILY PRN 04/20/21 05/02/21 History losartan 50 mg tablet 50 mg PO QAM 04/20/21 05/02/21 History meloxicam 7.5 mg tablet 7.5 mg PO DAILY PRN 04/20/21 05/02/21 History sertraline 25 mg tablet 25 mg PO QAM 04/20/21 05/02/21 History carbidopa 25 mg-levodopa 100 mg 0.5 tab PO BID 05/02/21 05/02/21 History tablet (Sinemet) Past Med/Surg History Medical History (Updated 05/02/21 @ 15:06 by Shea De La Cruz PA-C) CKD (chronic kidney disease), stage III Degeneration of cervical intervertebral disc Depression Dyslipidemia Female stress incontinence GERD (gastroesophageal reflux disease) History of colon polyps HTN (hypertension) Hypercalcemia Osteoarthritis Parkinsons disease Postmenopausal atrophic vaginitis Primary open angle glaucoma Senile osteoporosis Slow transit constipation Spinal stenosis of lumbar region Statin intolerance Type 2 diabetes mellitus Surgical History H/O cataract removal with insertion of prosthetic lens H/O colonoscopy History of esophagogastroduodenoscopy (EGD) Family History Father Cancer Unknown No problems noted. Uncle Pancreatic cancer Social History (Updated 05/02/21 @ 15:26 by Shea De La Cruz PA-C) Smoking Status: Never smoker Hx Alcohol Use: No Hx Substance Use: No Preferred Language: Maltese Communication Ability: Effective [employer] Supervisor Required: No Beliefs That Will Affect Care: None marital status: / Current Living Situation: Family Current Living Situation Comment: Son, Daughter in Law, Grandson current occupational status: retired Feels Safe at Home: Yes Assistive Devices: Walker Review of Systems Review of Systems: All systems reviewed & are unremarkable except as noted in HPI & below Physical Exam Physical Exam: General: no distress, WDWN Head: normocephalic, +ecchymosis and edema right frontal/parietal region, +laceration with [address] without active bleeding Eyes: PERRL, EOM's intact, conjunctiva non-injected, anicteric ENT: normal inspection external ears, nose, mucous membranes moist Neck: supple, trachea midline, non-tender Lungs: clear, no respiratory distress, no wheezing/rhonchi/rales CV: RRR, no murmur, no pretibial edema Abd: normal BS, soft, non-tender Ext: no cyanosis, no calf tenderness Neuro: Alert, oriented to person and place, sometimes slow to answer questions and needs prompting from son, +resting tremor to hands noted, right worse than left, slight masked faces Skin: warm, dry, head laceration as above Results & Data Results & Data ([facility]) Vital Signs (Past 12 Hours) Vital Signs Temp Pulse Resp BP Pulse Ox 05/02/21 14:42 96 05/02/21 11:31 36.5 C 61 14 138/56 L 97 Laboratory Results Short CBC 05/02/21 Range/Units 14:36 WBC 8.43 (4.8-10.8) K/uL Hgb 13.5 (12.0-16.0) g/dL Hct 42.7 (37-47) % Plt Count 271 (130-400) K/uL BMP 05/02/21 14:36 Sodium 140 Potassium Chloride 104 Carbon Dioxide 26 BUN 16 Creatinine 0.73 Glucose 104 H Calcium 10.0 Liver Function 05/02/21 Range/Units 14:36 Total Bilirubin 0.5 (0.2-1.0) mg/dl AST (13-39) U/L ALT 5 L (7-52) U/L Alkaline Phosphatase 93 (34-104) U/L Albumin 4.3 (3.4-5.0) gm/dl Diagnostic Findings Cervical Spine CT 05/02/21 12:07 CT cervical spine wo con CT DOSE: 463.74 mGycm CLINICAL HISTORY: 85 years-old Female with fall. Acute head and neck injury status post fall COMPARISON: Head CT of same day and also 04/20/2021 TECHNIQUE: Multiple axial CT images of the cervical spine were obtained without contrast. A dose lowering technique was utilized adhering to the principles of ALARA. FINDINGS: Straightening of the normal cervical lordosis. Severe C1-C2 degeneration. Advanced anterior endplate spondylitic spurring and C4-C6. Moderate to severe multilevel intervertebral disc space narrowing with degenerative related partial bony fusion of several levels. Posterior disc osteophyte complex formations are most pronounced at the C4-C5 interspace. Grade 1 anterolisthesis C4 on C5 is likely degenerative. No acute fracture or subluxation. Multilevel neuroforaminal narrowing. No prevertebral edema. Calcified plaque of the carotid arteries. Lung apices are clear without pneumothorax. IMPRESSION: No acute fracture or subluxation. ACT 112: Negative or not required by law. The above report was generated using voice recognition software. It may contain grammatical, syntax or spelling errors. Electronically signed by: Juan Ty M.D. 05/02/2021 12:[address] 05/02/21 12:[address] DOSE: 638.56 mGycm HISTORY: fall TECHNIQUE: Multiaxial CT images of the head were performed without the use of intravenous contrast. Automated exposure control was utilized for this study. A dose lowering technique was utilized adhering to the principles of ALARA. Comparison: Head CT 04/20/2021. Findings: Chronic opacification of the left frontal sinus, unchanged. The mastoid air cells are clear. Right supraorbital and right frontal scalp swelling. Stable widening within the central sulcus at the left high convexity. This favors an arachnoid cyst. The calvarium and skull base are intact. There is no mass, hematoma, midline shift, acute infarct. White matter hypodensity is nonspecific but suggestive of microvascular ischemic change. The ventricles and sulci demonstrate mild age-related involutional changes. Impression: 1. No acute intracranial abnormality. 2. Right frontal scalp injury. 3. Additional findings as described above. ACT 112: Negative or not required by law. Electronically signed by: Mani Ngo M.D. 05/02/2021 12:55 PM Supervising Physician Co-Signing Physician Notes Attending addendum: The patient was seen and examined in the emergency room in presence of the son She has Parkinson's disease and has been falling a lot at home and out into go to SNF She has had a fall this morning and was brought into the emergency room Denies any complaints On examination Hemodynamically stable lying in bed without any acute distress Has mild to moderate parkinsonian tremors involving the upper extremities Chest-clear to auscultate bilaterally HeartS1-S2, regular Abdomenbenign Extremitiesno edema CNSalert, awake and oriented. Generally weak but has been moving all extremities equally Her admission labs, imaging studies and EKG reviewed Has scalp laceration which has been stitched but no fracture noted with CT scan of the head or neck Parkinson disease with ambulatory dysfunction and frequent falls Likely to to need placement Agree with assessment and plan as outlined above by CHINA Alcala Dr
[2021-05-02 15:17] LABS: Albumin Globulin Ratio 1.7 (0.9-2); Albumin Level 4.3 gm/dl (3.4-5.0); BUN Creatinine Ratio 21.9 (10-20); Bilirubin,Total 0.5 mg/dl (0.2-1.0); Creatinine Clr Calc Pharmacy 47.7 ml/min; Est GFR (African American) 88.3 ml/min; Est GFR (Non-African American) 76.2 ml/min; Globulin 2.6 gm/dl (2.5-4.0); Total Protein 6.9 gm/dl (6.0-8.3)
[2021-05-02 15:21] LABS: Hematocrit (blood only) 42.7 % (37-47); Hemoglobin 13.5 g/dL (12.0-16.0); Mean Corpuscular Hemoglobin 30.3 pg (25-34); Mean Corpuscular Hgb Conc 31.6 g/dL (32-36); Platelet Count 271 K/uL (130-400); RDW Coefficient of Variation 14.3 % (11.5-14.5); RDW Standard Deviation 50.5 fL (36.4-46.3); Red Blood Count 4.45 M/uL (4.2-5.4); White Blood Count 8.43 K/uL (4.8-10.8)
[2021-05-02 15:23] LABS: Basophils # (auto) 0.04 K/uL (0-0.2); Basophils % (auto) 0.5 %; Eosinophils # (auto) 0.08 K/uL (0-0.5); Eosinophils % (auto) 0.9 %; Immature Granulocytes # (auto) 0.02 K/uL (0.00-0.02); Immature Granulocytes % (auto) 0.2 %; Lymphocytes # (auto) 1.33 K/uL (1.2-3.4); Lymphocytes % (auto) 15.8 %; Monocytes % (auto) 9.5 %; Neutrophils # (auto) 6.16 K/uL (1.4-6.5); Neutrophils % (auto) 73.1 %
[2021-05-02 15:24] LABS: Platelet Estimate Normal (Normal); Poikilocytosis Present; Polychromasia 1+
[2021-05-02 16:14] LABS: Appearance Urine Clear (Clear); Bilirubin Urine Negative (Negative); Blood Urine Negative (Negative); Color Urine Yellow; Glucose Urine UA Negative (Negative); Ketones Urine Negative (Negative); Leukocyte Esterase Urine Negative (Negative); Nitrite Urine Negative (Negative); Protein Urine Negative (Negative); Urobilinogen Urine Negative (Negative)
[2021-05-02 16:49] LABS: Potassium 4.2 mmol/L (3.5-5.1)
--- NOTE | 2021-05-02 17:43 | Electrocardiogram Report ---
Test Reason : Blood Pressure : / mmHG Vent. Rate : 062 BPM Atrial Rate : 258 BPM P-R Int : 000 ms QRS Dur : 102 ms QT Int : 452 ms P-R-T Axes : 019 -55 049 degrees QTc Int : 458 ms Poor data quality, interpretation may be adversely affected Sinus rhythm Left anterior fascicular block Left ventricular hypertrophy with repolarization abnormality Anteroseptal infarct (cited on or before 20-APR-2021) Abnormal ECG Confirmed by Noah Reza ([id number]) on 05/02/2021 5:42:50 PM Referred By: REFERRED SELF Confirmed By:Montrell Reza
[2021-05-02] MEDS ORDERED: POLYETHYLENE (MIRALAX) 17 GM PACK PO PRN (18:28)
[2021-05-02] MEDS ORDERED: MELOXICAM 7.5 MG TAB PO PRN (18:28)
[2021-05-02] MEDS ORDERED: MAGNESIUM HYDROXIDE SUSP 30 ML UDC PO PRN (18:28)
[2021-05-02] MEDS ORDERED: ACETAMINOPHEN 325 MG TAB PO PRN (18:28)
[2021-05-02] MEDS: CARBIDOPA/LEVODOPA 25/100MG TAB PO SCH (19:40)
[2021-05-02] MEDS: ENOXAPARIN INJ 30 MG/0.3 ML SYR SQ SCH (19:41)
[2021-05-02] MEDS: ATENOLOL 50 MG TABLET PO SCH (20:11)
[2021-05-02] MEDS ORDERED: LOSARTAN POTASSIUM 50 MG TAB PO STA (22:32)
[2021-05-02] MEDS ORDERED: LORazepam 2 MG/1 ML VIAL IV STA (22:33)
[2021-05-03 08:28] LABS: Hematocrit (blood only) 39.5 % (37-47); Hemoglobin 12.8 g/dL (12.0-16.0); Mean Corpuscular Hemoglobin 30.1 pg (25-34); Mean Corpuscular Hgb Conc 32.4 g/dL (32-36); Mean Corpuscular Volume 92.9 fL (80-100); Mean Platelet Volume 10.1 fL (7.4-10.4); Platelet Count 339 K/uL (130-400); RDW Standard Deviation 47.7 fL (36.4-46.3); Red Blood Count 4.25 M/uL (4.2-5.4); White Blood Count 8.29 K/uL (4.8-10.8)
[2021-05-03] MEDS: SERTRALINE HCL 50 MG TABLET PO SCH (08:38)
[2021-05-03] MEDS: CARBIDOPA/LEVODOPA 25/100MG TAB PO SCH ×2 (08:39→17:57)
[2021-05-03] MEDS: LOSARTAN POTASSIUM 50 MG TAB PO SCH (08:39)
[2021-05-03 08:48] LABS: BUN Creatinine Ratio 21.3 (10-20); Creatinine Clr Calc Pharmacy 57.1 ml/min; Est GFR (African American) 97.2 ml/min; Est GFR (Non-African American) 83.8 ml/min; Potassium 3.5 mmol/L (3.5-5.1)
--- NOTE | 2021-05-03 15:28 | Neurology Consultation ---
Date of Consultation May 03, 2021 Assessment & Plan (1) CHI (closed head injury): 1. repeat CT head- r/o late bleed 2. orthostatic once patient is more awake 3. check for infectious process and replete lytes (2) Parkinsons disease: 1. continue Sinemet 0.5 mg BID goal if able to tolerate would be 1 mg TID will need to titrate by 0.5 mg every week until at goal 2. PT/OT for discharge needs 3. will likely need placement- care mgt for assistance (3) Ambulatory dysfunction: 1. PT/OT for discharge needs. Supervising Physician Co-Signing Physician Notes Patient was seen and examined this afternoon. Family at bedside. Discussed and agree with Shaniqua Renteria as noted below. A 85 yo W with idiopathic parkinsonism disease and associated dementia admitted after a mechanical fall s/p mild TBI with concussion. Now very delirious appearing on examine. non verbal. Not recognizing family. Gaze preference to the right. Left sided neglect. Left arm if flexed. Picking at the bed sheets and attempting to remove gown. No facial assymetry. Left toe equivocal Vs upgoing. Recommend CT head and CTA head and neck as discussed with Dr. Holman. Real get EEG tomorrow. Discussed with family. Suspect severe hospital induced delirium in the setting of recent concussion and likely worsened by recent ativan. Family agree patient will need SNF due to worsening parkinsons dementia. Devaughn Morris will be rounding tomorrow with Shaniqua Renteria PA-C. I will [email or web address] interpret her EEG when completed. History of Present Illness Reason for Consultation: amb dysfunction, h/o Parkinsons with Sinemet adj Requesting Physician: Yokasta Holman DO Attending Physician: Yokasta Holman DO History of Present Illness Keysha is a 85 year old female with PMH- Parkinson's, history of recurrent falls, HTN, CKD III, depression presented to [facility] ER 05/02/21 with complaint of fall. At baseline she has problems with her memory and feels like she is at her baseline today. She had a hospitalization at [facility] 04/20/2021-04/21/2021 for strokelike symptoms. MRI negative for acute stroke. She had ambulatory dysfunction and progressive weakness. At that time family was not considering rehab or placement. She had been off her Sinemet for 2 weeks prior to last admission however upon last hospital discharge was re-started on low-dose Sinemet and has slowly been tapering up.She had 2 falls in the past 2 weeks. Several weeks ago was having dizziness with standing but doesn't think she was dizzy prior to fall today. Son reports upon standing she has a hard time starting to walk and then her feet get tangled and she loses her balance and falls. cesar fell hitting her head causing head laceration which was repaired in ER. The family feels they cannot safely care for her at home and have been trying to get patient in to [facility] and son reports they are on wait list. Her son is in the room and is worried because she is so lethargic. Allergies Allergy/AdvReac Type Severity Reaction Status Date / Time Sulfa (Sulfonamide Allergy Intermediate Rash Verified 05/02/21 16:15 Antibiotics) carbidopa AdvReac Intermediate FELL Verified 05/02/21 16:15 SEVERAL TIMES levodopa AdvReac Intermediate FELL Verified 05/02/21 16:15 SEVERAL TIMES nitrofurantoin AdvReac Intermediate NAUSEA/VOMI Verified 05/02/21 16:15 TING Home Medications Medication Instructions Recorded Confirmed Type acetaminophen 650 mg 650 mg PO QDD 04/20/21 05/02/21 History tablet,extended release atenolol 50 mg tablet 50 mg PO QDL 04/20/21 05/02/21 History furosemide 40 mg tablet 40 mg PO DAILY PRN 04/20/21 05/02/21 History losartan 50 mg tablet 50 mg PO QAM 04/20/21 05/02/21 History meloxicam 7.5 mg tablet 7.5 mg PO DAILY PRN 04/20/21 05/02/21 History sertraline 25 mg tablet 25 mg PO QDD 04/20/21 05/02/21 History carbidopa 25 mg-levodopa 100 mg 0.5 tab PO .BID AT 0800 & 1200 05/02/21 05/02/21 History tablet (Sinemet) Patient History Medical History (Updated 05/02/21 @ 15:06 by Shea De La Cruz PA-C) CKD (chronic kidney disease), stage III Degeneration of cervical intervertebral disc Depression Dyslipidemia Female stress incontinence GERD (gastroesophageal reflux disease) History of colon polyps HTN (hypertension) Hypercalcemia Osteoarthritis Parkinsons disease Postmenopausal atrophic vaginitis Primary open angle glaucoma Senile osteoporosis Slow transit constipation Spinal stenosis of lumbar region Statin intolerance Type 2 diabetes mellitus Surgical History H/O cataract removal with insertion of prosthetic lens H/O colonoscopy History of esophagogastroduodenoscopy (EGD) Family History Father Cancer Unknown No problems noted. Uncle Pancreatic cancer Social History (Updated 05/02/21 @ 15:26 by Shea De La Cruz PA-C) Smoking Status: Never smoker Second Hand Exposure: No; Do You Dip or Chew Tobacco: No; Tobacco Cessation Education Requested by Patient: No Hx Alcohol Use: No Hx Substance Use: No Preferred Language: Maltese Communication Ability: Impaired Communication Ability Comment: confusion Administrative Support Manager Required: No Beliefs That Will Affect Care: None marital status: / Current Living Situation: Family Current Living Situation Comment: Son, Daughter in Law, Grandson current occupational status: retired Feels Safe at Home: Yes Safety Concerns: Feels Safe At This Time Assistive Devices: Walker Review of Systems Review of Systems: Unobtainable due to cognitive status Physical Exam Physical Exam: Physical Exam: Constitutional: appearance nourished, thin Ears, Nose, Mouth and Throat: mucous membranes moist, no injection and skin normal, eyes normal Cardiovascular: normal S-1 and S-2 and regular rate and rhythm Respiratory: course breath sounds Musculoskeletal: no peripheral edema and good distal pulses, right knee stiff Skin: ecchymosis right eye Eyes: pupil reactive tries to open eyes NEUROLOGIC EXAMINATION: Mental status: lethargic Oriented to person Speech clear only simple one word answers Cranial Nerves unable to assess Reflexes: Deep tendon reflexes were symmetric UE, unable to evaluate LE, down going toes Sensory: intact to deep stimulation Coordination: Romberg absent Gait/Stance: Posture lying in bed Motor: moves arms and left leg with stimulation Strength: unable to assess Results & Data ([facility]) Vital Signs (Past 12 Hours) Vital Signs Temp Pulse Resp BP Pulse Ox 05/03/21 08:21 36.8 C 70 16 164/84 H 94 Laboratory Results Abnormal lab results 02/24/22 02/24/22 02/24/22 Range/Units 07:55 07:55 15:11 RDW Std Deviation 47.7 H (36.4-46.3) fL BUN/Creatinine Ratio 21.3 H (10-20) Glucose 122 H (70-99(Fasting)) mg/dl POC Glucose 108 H (70-99) mg/dl Diagnostic Findings CT head-no acute intracranial abnormality. Right frontal scalp injury. CT c spine-No acute fracture or subluxation.
--- NOTE | 2021-05-03 15:48 | Hospitalist Progress Note ---
Date of Service May 03, 2021 Assessment & Plan (1) Ambulatory dysfunction: (2) Recurrent falls: (3) Parkinsons disease: Plan: Patient is 85-year-old female with PMH Parkinson's, history of recurrent falls, HTN, CKD III, depression presented to ER with complaint of fall today resulting in hitting head and head laceration. Denies LOC or other injury. At baseline mental status per son on admission. Increased falls at home, likely secondary to Parkinson's, possible orthostatic hypotension Initial CT Head and CT C-spine: no acute findings, UA WNL Follows with Dr. Ortiz for Parkinsons disease Consulted neuro today due to worsening lethargy throughout the day- seemed to be at baseline this morning and able to participate with PT but much less able to cooperate this afternoon due to lethargy * Concern for closed head injury - repeat CT head wo con, CTA head * Continue Sinemet 0.5 mg BID goal if able to tolerate would be 1 mg TID will need to titrate by 0.5 mg every week until at goal (previously off of Sinemet for 2 weeks) Fall precautions, obtain orthostatic vital signs once patient more alert, increased frequency of vital sign checks to Q4H given elevated BP PT/OT eval - PT recommending SNF, OT unable to evaluate this AM Awaiting placement - preference for [facility] per CM HEAD LACERATION Repaired in ER with 6 sutures Will need suture removal in 7 days Monitor for signs of infection (4) CKD (chronic kidney disease), stage III: Plan: Cr: 0.7. Baseline Cr: ~1.0 Monitor renal functions (5) HTN (hypertension): Plan: Continue atenolol, losartan Has Lasix prn edema. Does not have significant edema currently so will hold and monitor (6) Depression: Plan: Continue sertraline DVT Prophylaxis Lovenox SQ DNR/DNI as per discussion with pt and pt's son Follows with Dr Romeo Wick for routine care Admission and Anticipated Discharge Date Admission Date: May 02, 2021 Supervising Physician Co-Signing Physician Notes * Progressive Parkinson'scausingambulatory dysfunction and falls * Neurogenic Orthostatic Hypotension (NOH)due toParkinsons * Dysequilibriumdue toprogression of Parkinsons Disease * Hospital -induced delirium in setting of known PArkinson's dementia. I have seen and examined the patient and have discussed the case with the provider above. I agree with the assessment and plan as stated. 85 yo F with recent admission and recent changes to Sinemet and Cymbalta through her neurologist. Falls reported and she has an area of ecchymosis present on right front head. There are PT reports written of her walking just a couple of hours ago and verbalizing, however, at this time she is somnolent and nonreponsive. ROS therefore unable to be obtained. Physical reveals elderly, frail female with somnolence and occasional agitation/mild tremors. There is strength in her arms to push examiner away and there is restriction to passive knee flexion bilaterally. 2+ bilateral knee reflexes present, pupils are round and equal to light. Cardiac: S1/2 heard without mgr, lungs are clear with exam limited 2/2 somnolence. She is clearly more altered than the exam above. Repeat head CT and CTA pending and signed out to engineering supervisor for review. Discussed case with neurology and with famly members (3) who were at bedside. Currently, she is not awake enough to handle anything orally so Sinemet cannot be given. Will also make her NPO until more alert/awake to safely swallow. Tylenol IV scheduled was initiated as this is something she takes regularly at home for arthritis pain and uncontrolled pain may contribute to delirium. DO Charo Holman Seen and examined in 356-2 in follow up for ambulatory dysfunction and falls in setting of Parkinson's. Sleeping at start of interview but arousable, answering questions appropriately with yes/no. Denies any new symptoms overnight. No F/C, CP, SOB, N/V, abdominal pain, dysuria, diarrhea or constipation. Knows name and that she is in a hospital but believes she is in [place]. Review of Systems Review of Systems: At least ten systems reviewed and negative except as noted in the HPI. Physical Exam Physical Exam: Gen: WD/WN, NAD, lying in bed, sleepy but arousable, A&O to person, moves extremities on command, EOM intact HEENT: PERRL, normocephalic, atraumatic, conjunctivae moist, sclerae anicteric, mucous membranes moist Lung: Clear to Auscultation bilaterally, no wheezes/rales/rhonchi Heart: Regular rate, regular rhythm, no murmurs, rubs, or gallops Abdomen: Soft, NT, ND +BS x 4 Extremities: no edema Skin: Warm, no rash Results & Data Results & Data ([facility]) Vital Signs (Past 12 Hours) Vital Signs Temp Pulse Resp BP Pulse Ox 05/03/21 08:21 36.8 C 70 16 164/84 H 94 Laboratory Results Short CBC 05/03/21 Range/Units 07:55 WBC 8.29 (4.8-10.8) K/uL Hgb 12.8 (12.0-16.0) g/dL Hct 39.5 (37-47) % Plt Count 339 (130-400) K/uL BMP 05/03/21 07:55 Sodium 138 Potassium 3.5 Chloride 100 Carbon Dioxide 30 BUN 13 Creatinine 0.61 Glucose 122 H Calcium 10.0 Diagnostic Findings Cervical Spine CT 05/02/21 12:07 CT cervical spine wo con CT DOSE: 463.74 mGycm CLINICAL HISTORY: 85 years-old Female with fall. Acute head and neck injury status post fall COMPARISON: Head CT of same day and also 04/20/2021 TECHNIQUE: Multiple axial CT images of the cervical spine were obtained without contrast. A dose lowering technique was utilized adhering to the principles of ALARA. FINDINGS: Straightening of the normal cervical lordosis. Severe C1-C2 degeneration. Advanced anterior endplate spondylitic spurring and C4-C6. Moderate to severe multilevel intervertebral disc space narrowing with degenerative related partial bony fusion of several levels. Posterior disc osteophyte complex formations are most pronounced at the C4-C5 interspace. Grade 1 anterolisthesis C4 on C5 is likely degenerative. No acute fracture or subluxation. Multilevel neuroforaminal narrowing. No prevertebral edema. Calcified plaque of the carotid arteries. Lung apices are clear without pneumothorax. IMPRESSION: No acute fracture or subluxation. ACT 112: Negative or not required by law. The above report was generated using voice recognition software. It may contain grammatical, syntax or spelling errors. Electronically signed by: Juan Ty M.D. 05/02/2021 12:[address] 05/02/21 12:[address] DOSE: 638.56 mGycm HISTORY: fall TECHNIQUE: Multiaxial CT images of the head were performed without the use of intravenous contrast. Automated exposure control was utilized for this study. A dose lowering technique was utilized adhering to the principles of ALARA. Comparison: Head CT 04/20/2021. Findings: Chronic opacification of the left frontal sinus, unchanged. The mastoid air cells are clear. Right supraorbital and right frontal scalp swelling. Stable widening within the central sulcus at the left high convexity. This favors an arachnoid cyst. The calvarium and skull base are intact. There is no mass, hematoma, midline shift, acute infarct. White matter hypodensity is nonspecific but suggestive of microvascular ischemic change. The ventricles and sulci demonstrate mild age-related involutional changes. Impression: 1. No acute intracranial abnormality. 2. Right frontal scalp injury. 3. Additional findings as described above. ACT 112: Negative or not required by law. Electronically signed by: Mani Ngo M.D. 05/02/2021 12:55 PM
[2021-05-03] MEDS ORDERED: ACETAMINOPHEN 1000 MG/100 ML IV IV SCH (19:15)
[2021-05-03] MEDS: ACETAMINOPHEN 1,000 MG/100 ML VIAL IV SCH (20:28)
[2021-05-03] MEDS: ENOXAPARIN INJ 30 MG/0.3 ML SYR SQ SCH (20:28)
[2021-05-03] MEDS: ATENOLOL 50 MG TABLET PO SCH (20:29)
[2021-05-03] MEDS ORDERED: OPTIRAY 320 125ml IV ONE (21:45)
[2021-05-04] MEDS ORDERED: LACTATED RINGER'S 1,000 ML IV ONE (01:03)
[2021-05-04 01:50] LABS: Basophils # (auto) 0.02 K/uL (0-0.2); Basophils % (auto) 0.2 %; Eosinophils # (auto) 0.01 K/uL (0-0.5); Eosinophils % (auto) 0.1 %; Hematocrit (blood only) 37.9 % (37-47); Hemoglobin 12.5 g/dL (12.0-16.0); Immature Granulocytes # (auto) 0.02 K/uL (0.00-0.02); Immature Granulocytes % (auto) 0.2 %; Lymphocytes # (auto) 1.44 K/uL (1.2-3.4); Lymphocytes % (auto) 14.7 %; Mean Corpuscular Hemoglobin 30.4 pg (25-34); Mean Corpuscular Volume 92.2 fL (80-100); Mean Platelet Volume 9.6 fL (7.4-10.4); Monocytes # (auto) 0.67 K/uL (0.11-0.59); Monocytes % (auto) 6.8 %; Neutrophils # (auto) 7.64 K/uL (1.4-6.5); Platelet Count 323 K/uL (130-400); RDW Coefficient of Variation 14.1 % (11.5-14.5); RDW Standard Deviation 48.4 fL (36.4-46.3); Red Blood Count 4.11 M/uL (4.2-5.4)
[2021-05-04 02:09] LABS: Albumin Globulin Ratio 1.6 (0.9-2); Albumin Level 4.2 gm/dl (3.4-5.0); BUN Creatinine Ratio 17.1 (10-20); Bilirubin,Total 0.6 mg/dl (0.2-1.0); Calcium 9.7 mg/dl (8.5-10.1); Creatinine Clr Calc Pharmacy 42.5 ml/min; Est GFR (African American) 76.7 ml/min; Est GFR (Non-African American) 66.2 ml/min; Globulin 2.7 gm/dl (2.5-4.0); Magnesium 1.6 mg/dl (1.7-2.4); Potassium 3.7 mmol/L (3.5-5.1); Total Protein 6.9 gm/dl (6.0-8.3)
[2021-05-04] MEDS ORDERED: MAGNESIUM SULFATE / D5W 1 GM/100 ML BAG IV ONE ×2 (02:40→18:00)
[2021-05-04] MEDS: ACETAMINOPHEN 1,000 MG/100 ML VIAL IV SCH ×3 (03:28→22:01)
--- NOTE | 2021-05-04 07:21 | CT Scan Report ---
CT head/brain wo con, CT angio head w con CLINICAL HISTORY: 85 years-old Female with lethargy. Acutely altered mental status TECHNIQUE: Multiple axial CT images of the head were obtained without contrast. A dose lowering tech nique was utilized adhering to the principles of ALARA. CTA of the head was also obtained following t he intravenous administration of 120 mL Optiray 320. 3-D coronal and sagittal MIPS were obtained from the axial data set and were submitted for review. All measurements were obtained according to NASCET criteria. CT DOSE: 966.62 mGy.cm COMPARISON: None. FINDINGS: CT HEAD: No acute intracranial hemorrhage, midline shift, intracranial mass, hydrocephalus, territorial ischem ia or abnormal extra-axial collection. Age-related involutional changes. White matter hypodensities s uggest chronic microvascular ischemic disease. Cerebral vascular calcifications. The calvarium is intact. There is mild subcutaneous emphysema of the right frontal scalp suggestive o f penetrating trauma. Small right supraorbital contusion. Prior bilateral lens repair. The paranasal sinuses, mastoid air cells, and middle ear cavities are clear. CTA HEAD: The imaged bilateral internal carotid arteries are patent with mild atherosclerotic plaque. The middl e and anterior cerebral arteries are patent. The distal vertebral and basilar arteries are patent. Fe emily origin of the left posterior cerebral artery. The posterior cerebral arteries are widely patent. The cerebral venous sinuses are patent. There is no abnormal intracranial enhancement. IMPRESSION: 1. No acute intracranial abnormality. 2. Small right supraorbital contusion with subcutaneous emphysema suggestive of laceration. 3. Unremarkable CTA of the head. ACT 112: Negative or not required by law. The above report was generated using voice recognition software. It may contain grammatical, syntax o r spelling errors. Electronically signed by: Juan Ty M.D. 05/04/2021 7:20 AM
[2021-05-04] MEDS: CARBIDOPA/LEVODOPA 25/100MG TAB PO SCH ×4 (09:28→22:02)
[2021-05-04] MEDS: LOSARTAN POTASSIUM 50 MG TAB PO SCH ×3 (09:29→13:45)
[2021-05-04] MEDS: SERTRALINE HCL 50 MG TABLET PO SCH ×3 (09:29→13:45)
--- NOTE | 2021-05-04 14:35 | Hospitalist Progress Note ---
Date of Service May 04, 2021 Assessment & Plan (1) Ambulatory dysfunction: (2) Recurrent falls: (3) Parkinsons disease: Plan: Patient is 85-year-old female with PMH Parkinson's, history of recurrent falls, HTN, CKD III, depression presented to ER with complaint of fall today resulting in hitting head and head laceration. Progressive Parkinson'scausingambulatory dysfunction and falls * Neurogenic Orthostatic Hypotension (NOH)due toParkinsons * Dysequilibriumdue toprogression of Parkinsons Disease * Hospital -induced delirium in setting of known Parkinson's dementia -> Impro ving Initial CT Head and CT C-spine: no acute findings, UA WNL Follows with Dr. Ortiz for Parkinsons disease Neuro evaluated yesterday due to worsening lethargy throughout the day * Concern for closed head injury - repeat CT head wo con, CTA head without acute abnormality * Continue Sinemet 0.5 mg BID goal if able to tolerate would be 1 mg TID will need to titrate by 0.5 mg every week until at goal (previously off of Sinemet for 2 weeks) * Will clarify whether or not to up-titrate dose of Sinemet with Dr. Ortiz tomorrow Mentating much closer to baseline today per son at bedside. Lives with family and is able to feed herself and stand with assistance at home. Significant ambulatory dysfunction 2/2 Parkinsons at baseline Fall precautions, difficult to obtain orthostatic vital signs due to patient requiring assistance - try to obtain while up with therapy tomorrow Will trial diet now that patient more alert with son at bedside, aspiration precautions PT & OT evaluated - recommending SNF Awaiting placement - preference for [facility] with referrals out to other SNFs, per CM documentation HEAD LACERATION Repaired in ER with 6 sutures Will need suture removal by 05/09/21 Monitor for signs of infection (4) CKD (chronic kidney disease), stage III: Plan: Cr: 0.7. Baseline Cr: ~1.0 Monitor renal functions (5) HTN (hypertension): Plan: Continue atenolol, losartan Has Lasix prn edema. Does not have significant edema currently so will hold and monitor (6) Depression: Plan: Continue sertraline DVT Prophylaxis Lovenox SQ DNR/DNI as per discussion with pt and pt's son Follows with Dr Stanley for routine care Admission and Anticipated Discharge Date Admission Date: May 02, 2021 Supervising Physician Co-Signing Physician Notes I have seen and examined the patient and have discussed the case with the provider above. I agree with the assessment and plan as stated. 85 yo F with parkinson's dementia admitted for recurrent falls. s/p traumatic hed injury with lac repair-healing well. Mental status is improved today but she is still altered. ROS is not able to be obtained. REpeat head CT from yesterday was normal. My physical exam is consistent with above. Cont care plan as outlined above. Appreciate neurology recs. DO [place] Subjective Seen and examined in 356-2 in follow up for ambulatory dysfunction and falls in setting of Parkinson's. More alert today, answering questions appropriately with yes/no. Denies any new symptoms overnight. No F/C, CP, SOB, N/V, abdominal pain, dysuria, diarrhea or constipation. Does endorse shoulder pain which has improved with Tylenol. Knows name and that she is in a hospital. Not oriented to time. Review of Systems Review of Systems: At least ten systems reviewed and negative except as noted in the HPI. Physical Exam Physical Exam: Gen: WD/WN, NAD, lying in bed, sleepy but arousable, A&O to person and place today, moves extremities on command HEENT: PERRL, normocephalic, 6 sutures on R hairline, ecchymosis on lateral portion of orbital bone. Mucous membranes moist Lung: Clear to Auscultation bilaterally, no wheezes/rales/rhonchi Heart: Regular rate, regular rhythm, no murmurs, rubs, or gallops Abdomen: Soft, NT, ND +BS x 4 Extremities: BUE tremors R>L, no edema Skin: Warm, no rash Results & Data Results & Data ([facility]) Vital Signs (Past 12 Hours) Vital Signs Temp Pulse Resp BP Pulse Ox 05/04/21 08:01 36.7 C 80 16 141/68 H 92 05/04/21 05:24 36.8 C 61 18 127/70 93 Laboratory Results Short CBC 05/04/21 Range/Units 01:30 WBC 9.80 (4.8-10.8) K/uL Hgb 12.5 (12.0-16.0) g/dL Hct 37.9 (37-47) % Plt Count 323 (130-400) K/uL BMP 05/04/21 01:30 Sodium 136 Potassium 3.7 Chloride 100 Carbon Dioxide 27 BUN 14 Creatinine 0.82 Glucose 121 H Calcium 9.7 Liver Function 05/04/21 Range/Units 01:30 Total Bilirubin 0.6 (0.2-1.0) mg/dl AST 12 L (13-39) U/L ALT 8 (7-52) U/L Alkaline Phosphatase 93 (34-104) U/L Albumin 4.2 (3.4-5.0) gm/dl Diagnostic Findings Cervical Spine CT 05/02/21 12:07 CT cervical spine wo con CT DOSE: 463.74 mGycm CLINICAL HISTORY: 85 years-old Female with fall. Acute head and neck injury status post fall COMPARISON: Head CT of same day and also 04/20/2021 TECHNIQUE: Multiple axial CT images of the cervical spine were obtained without contrast. A dose lowering technique was utilized adhering to the principles of ALARA. FINDINGS: Straightening of the normal cervical lordosis. Severe C1-C2 degeneration. Advanced anterior endplate spondylitic spurring and C4-C6. Moderate to severe multilevel intervertebral disc space narrowing with degenerative related partial bony fusion of several levels. Posterior disc osteophyte complex formations are most pronounced at the C4-C5 interspace. Grade 1 anterolisthesis C4 on C5 is likely degenerative. No acute fracture or subluxation. Multilevel neuroforaminal narrowing. No prevertebral edema. Calcified plaque of the carotid arteries. Lung apices are clear without pneumothorax. IMPRESSION: No acute fracture or subluxation. ACT 112: Negative or not required by law. The above report was generated using voice recognition software. It may contain grammatical, syntax or spelling errors. Electronically signed by: Juan Ty M.D. 05/02/2021 12:[address] 05/02/21 12:[address] DOSE: 638.56 mGycm HISTORY: fall TECHNIQUE: Multiaxial CT images of the head were performed without the use of intravenous contrast. Automated exposure control was utilized for this study. A dose lowering technique was utilized adhering to the principles of ALARA. Comparison: Head CT 04/20/2021. Findings: Chronic opacification of the left frontal sinus, unchanged. The mastoid air cells are clear. Right supraorbital and right frontal scalp swelling. Stable widening within the central sulcus at the left high convexity. This favors an arachnoid cyst. The calvarium and skull base are intact. There is no mass, hematoma, midline shift, acute infarct. White matter hypodensity is nonspecific but suggestive of microvascular ischemic change. The ventricles and sulci demonstrate mild age-related involutional changes. Impression: 1. No acute intracranial abnormality. 2. Right frontal scalp injury. 3. Additional findings as described above. ACT 112: Negative or not required by law. Electronically signed by: Mani Ngo M.D. 05/02/2021 12:[address] 05/03/21 17:00 CT head/brain wo con, CT angio head w con CLINICAL HISTORY: 85 years-old Female with lethargy. Acutely altered mental status TECHNIQUE: Multiple axial CT images of the head were obtained without contrast. A dose lowering technique was utilized adhering to the principles of ALARA. CTA of the head was also obtained following the intravenous administration of 120 mL Optiray 320. 3-D coronal and sagittal MIPS were obtained from the axial data set and were submitted for review. All measurements were obtained according to NASCET criteria. CT DOSE: 966.62 mGy.cm COMPARISON: None. FINDINGS: CT HEAD: No acute intracranial hemorrhage, midline shift, intracranial mass, hydrocephalus, territorial ischemia or abnormal extra-axial collection. Age- related involutional changes. White matter hypodensities suggest chronic microvascular ischemic disease. Cerebral vascular calcifications. The calvarium is intact. There is mild subcutaneous emphysema of the right frontal scalp suggestive of penetrating trauma. Small right supraorbital contusion. Prior bilateral lens repair. The paranasal sinuses, mastoid air cells, and middle ear cavities are clear. CTA HEAD: The imaged bilateral internal carotid arteries are patent with mild atherosclerotic plaque. The middle and anterior cerebral arteries are patent. The distal vertebral and basilar arteries are patent. origin of the left posterior cerebral artery. The posterior cerebral arteries are widely patent. The cerebral venous sinuses are patent. There is no abnormal intracranial enhancement. IMPRESSION: 1. No acute intracranial abnormality. 2. Small right supraorbital contusion with subcutaneous emphysema suggestive of laceration. 3. Unremarkable CTA of the head. ACT 112: Negative or not required by law. The above report was generated using voice recognition software. It may contain grammatical, syntax or spelling errors. Electronically signed by: Juan Ty M.D. 05/04/2021 7:20 AM Head CTA 05/03/21 17:00 CT head/brain wo con, CT angio head w con CLINICAL HISTORY: 85 years-old Female with lethargy. Acutely altered mental status TECHNIQUE: Multiple axial CT images of the head were obtained without contrast. A dose lowering technique was utilized adhering to the principles of ALARA. CTA of the head was also obtained following the intravenous administration of 120 mL Optiray 320. 3-D coronal and sagittal MIPS were obtained from the axial data set and were submitted for review. All measurements were obtained according to NASCET criteria. CT DOSE: 966.62 mGy.cm COMPARISON: None. FINDINGS: CT HEAD: No acute intracranial hemorrhage, midline shift, intracranial mass, hydrocephalus, territorial ischemia or abnormal extra-axial collection. Age- related involutional changes. White matter hypodensities suggest chronic microvascular ischemic disease. Cerebral vascular calcifications. The calvarium is intact. There is mild subcutaneous emphysema of the right frontal scalp suggestive of penetrating trauma. Small right supraorbital contusion. Prior bilateral lens repair. The paranasal sinuses, mastoid air cells, and middle ear cavities are clear. CTA HEAD: The imaged bilateral internal carotid arteries are patent with mild atherosclerotic plaque. The middle and anterior cerebral arteries are patent. The distal vertebral and basilar arteries are patent. origin of the left posterior cerebral artery. The posterior cerebral arteries are widely patent. The cerebral venous sinuses are patent. There is no abnormal intracranial enhancement.
--- NOTE | 2021-05-04 15:02 | Electroencephalogram ---
EEG Procedure Note Date of Service May 04, 2021 Start / End Times Start Time: 12:53 End Time: 13:[address] Dylon Ortiz, DO History An 85-year-old woman with Parkinson's dementia admitted with fall and presumed hospital induced delirium. EEG performed for evaluation epileptiform activity. Home Medication List Medication Instructions Recorded Confirmed Type acetaminophen 650 mg 650 mg PO QDD 04/20/21 05/02/21 History tablet,extended release atenolol 50 mg tablet 50 mg PO QDL 04/20/21 05/02/21 History furosemide 40 mg tablet 40 mg PO DAILY PRN 04/20/21 05/02/21 History losartan 50 mg tablet 50 mg PO QAM 04/20/21 05/02/21 History meloxicam 7.5 mg tablet 7.5 mg PO DAILY PRN 04/20/21 05/02/21 History sertraline 25 mg tablet 25 mg PO QDD 04/20/21 05/02/21 History carbidopa 25 mg-levodopa 100 mg 0.5 tab PO .BID AT 0800 & 1200 05/02/21 05/02/21 History tablet (Sinemet) Inpatient Medication List Atenolol (Atenolol 50 Mg Tablet) 50 mg PO QPM [facility] Stop: 06/01/21 20:59 Last Admin: 05/03/21 20:29 Dose: Not Given Documented by: [id number] Admin: 05/02/21 20:11 Dose: 50 mg Documented by: [id number] Carbidopa/Levodopa (Carbidopa/Levodopa 25/100mg Tab) 0.5 tab PO BIDM [facility] Stop: 05/04/21 17:01 Last Admin: 05/04/21 09:48 Dose: 0.5 tab Documented by: [id number] Admin: 05/03/21 17:57 Dose: Not Given Documented by: [id number] Admin: 05/03/21 08:39 Dose: 0.5 tab Documented by: [id number] Admin: 05/02/21 19:40 Dose: 0.5 tab Documented by: [id number] Enoxaparin Sodium (Enoxaparin Inj 30 Mg/0.3 Ml Syr) 30 mg SQ Q24H [facility] Stop: 06/01/21 19:59 Last Admin: 05/03/21 20:28 Dose: 30 mg Documented by: [id number] Admin: 05/02/21 19:41 Dose: 30 mg Documented by: [id number] Acetaminophen (Ofirmev) 1,000 mg in 100 mls @ 400 mls/hr IV Q8H [facility]; Protocol Stop: 05/06/21 19:59 Last Admin: 05/04/21 13:38 Dose: 400 mls/hr Documented by: [id number] Infusion: 05/04/21 03:43 Dose: 0 mls/hr Documented by: [id number] Admin: 05/04/21 03:28 Dose: 400 mls/hr Documented by: [id number] Infusion: 05/03/21 20:43 Dose: 0 mls/hr Documented by: [id number] Admin: 05/03/21 20:28 Dose: 400 mls/hr Documented by: [id number] Lactated Ringer's (Lr) 1,000 mls @ 40 mls/hr IV .Q24H ONE Stop: 05/05/21 01:02 Last Admin: 05/04/21 01:10 Dose: 40 mls/hr Documented by: [id number] Losartan Potassium (Losartan Potassium 50 Mg Tab) 50 mg PO [facility] Stop: 06/02/21 08:59 Last Admin: 05/04/21 13:45 Dose: Not Given Documented by: [id number] Admin: 05/03/21 08:39 Dose: 50 mg Documented by: [id number] Sertraline HCl (Sertraline Hcl 50 Mg Tablet) 25 mg PO [facility] Stop: 06/02/21 08:59 Last Admin: 05/04/21 13:45 Dose: Not Given Documented by: [id number] Admin: 05/03/21 08:38 Dose: 25 mg Documented by: [id number] Discontinued Medications Magnesium Sulfate/Dextrose (Magnesium Sulfate / D5w) 1 gm in 100 mls @ 50 mls/hr IV ONE ONE Stop: 05/04/21 04:39 Last Infusion: 05/04/21 05:31 Dose: 0 mls/hr Documented by: [id number] Admin: 05/04/21 03:30 Dose: 50 mls/hr Documented by: [id number] Ioversol (Optiray 320 125ml) 120 ml IV ONCE ONE Stop: 05/03/21 21:46 Last Admin: 05/03/21 21:45 Dose: 120 ml Documented by: [id number] Lidocaine (Lidocaine/Epineph/Tetracaine 1 Ea Syr) 1 ea EXT NOW ONE Stop: 05/02/21 12:08 Last Admin: 05/02/21 12:22 Dose: 1 ea Documented by: [id number] Lidocaine HCl (Xylocaine 1%/Sod Bicarb 20 Ml Vial) 20 ml INFIL NOW ONE Stop: 05/02/21 13:34 Last Admin: 05/02/21 13:50 Dose: 20 ml Documented by: [id number] Lorazepam (Lorazepam 2 Mg/1 Ml Vial) 0.25 mg IV NOW STA Stop: 05/02/21 22:34 Last Admin: 05/02/21 22:59 Dose: 0.25 mg Documented by: [id number] Losartan Potassium (Losartan Potassium 50 Mg Tab) 50 mg PO NOW STA Stop: 05/02/21 22:33 Last Admin: 05/02/21 22:50 Dose: 50 mg Documented by: [id number] Description This is a 21 electrode EEG with a single channel dedicated to limited EKG. The electrodes were placed in accordance with the International 10-20 system. REPORT: At the onset of the EEG the patient is in altered mental state. The posterior dominant rhythm is not well seen. The background is symmetric And predominantly consist of polymorphic 2-5 Hz theta delta activity with some superimposed faster frequencies. Photic stimulation does not induce any abnormalities. Hyperventilation is not performed. No stage 2 sleep transients are noted. No epileptiform discharges are seen. Interpretation IMPRESSION: This is an abnormal routine EEG in a patient with altered mentation due to generalized background slowing suggestive of a nonspecific encephalopathy. There is no evidence of focal slowing or epileptiform activity.
--- NOTE | 2021-05-04 16:58 | Progress Notes ---
DATE OF SERVICE: 05/04/2021 SUBJECTIVE: I am seeing Mrs. Armenta in followup of Parkinson's disease with delirium. Her son indica karissa she is much improved today. Her CT and CTA of the head and neck did not reveal an acute etiology for delirium. Her EEG shows diffuse slowing, but no seizure activity or lateralizing abnormalities. Son does not know if she is yet taking by mouth. OBJECTIVE: On exam, she is sleeping comfortably and awakens easily. She is oriented to person. She knows she is in the hospital, but she thinks it is [facility]. She thinks it is 1921, but then easil y corrects to 2021 and knows that it is April. There is no right/left confusion. I do not apprec iate any carotid bruits and there are not any heart murmurs. Blood pressure is 140/72, pulse of 78, O2 sat is 93%, and temperature is 36.7. There is normal extraocular motility. No fixed gaze prefere nce. Normal visual quesada. There is some swelling of the right mouth, so it is difficult to see if there is any overt facial asymmetry. Speech is hypophonic, but not dysarthric. There is a prominent right hand resting tremor with cogwheel rigidity. Strength appears grossly normal without drift. Lo wer extremity strength is full. IMPRESSION AND PLAN: Resolving delirium, history of Parkinson's disease. I will sign off at present . Please reconsult if there is a change or if needed. Dr. Ortiz will be taking over the service t omorrow. Job ID: [id number]
[2021-05-04] MEDS: ENOXAPARIN INJ 30 MG/0.3 ML SYR SQ SCH (22:01)
[2021-05-04] MEDS: ATENOLOL 50 MG TABLET PO SCH (22:02)
[2021-05-05] MEDS: ACETAMINOPHEN 1,000 MG/100 ML VIAL IV SCH (04:33)
[2021-05-05] MEDS: SERTRALINE HCL 50 MG TABLET PO SCH (08:53)
[2021-05-05] MEDS: CARBIDOPA/LEVODOPA 25/100MG TAB PO SCH ×2 (08:54→20:19)
[2021-05-05] MEDS ORDERED: CARBIDOPA/LEVODOPA 25/100MG TAB PO SCH (09:00)
[2021-05-05] MEDS: LOSARTAN POTASSIUM 50 MG TAB PO SCH (09:57)
[2021-05-05 11:43] LABS: Hematocrit (blood only) 38.7 % (37-47); Hemoglobin 12.6 g/dL (12.0-16.0); Mean Corpuscular Hemoglobin 30.7 pg (25-34); Mean Corpuscular Hgb Conc 32.6 g/dL (32-36); Mean Corpuscular Volume 94.2 fL (80-100); Mean Platelet Volume 9.8 fL (7.4-10.4); Platelet Count 266 K/uL (130-400); RDW Standard Deviation 47.9 fL (36.4-46.3); Red Blood Count 4.11 M/uL (4.2-5.4); White Blood Count 6.76 K/uL (4.8-10.8)
[2021-05-05] MEDS: ACETAMINOPHEN 500 MG TAB PO SCH ×2 (11:58→20:18)
[2021-05-05 12:01] LABS: BUN Creatinine Ratio 22.7 (10-20); Calcium 9.3 mg/dl (8.5-10.1); Creatinine Clr Calc Pharmacy 52.8 ml/min; Est GFR (African American) 94.7 ml/min; Est GFR (Non-African American) 81.7 ml/min; Potassium 3.3 mmol/L (3.5-5.1)
--- NOTE | 2021-05-05 15:12 | Hospitalist Progress Note ---
Date of Service May 05, 2021 Assessment & Plan (1) Parkinsons disease: Plan: Patient is 85-year-old female with PMH Parkinson's, history of recurrent falls, HTN, CKD III, depression presented to ER with complaint of fall today resulting in hitting head and head laceration. Progressive Parkinson'scausingambulatory dysfunction and falls * Neurogenic Orthostatic Hypotension (NOH)due toParkinsons * Dysequilibriumdue toprogression of Parkinsons Disease * Hospital -induced delirium in setting of known Parkinson's dementia -> Improving Initial head CT was unremarkable lac repair in ER, sutures in place and ecchymotic area continues to heal daily. Waxing/waning mental status after head trauma on mobic at home Repeat head CT and head CTA was negative for bleed or other acute intracranial abnormality Neuro consulted * Continue Sinemet 0.5 mg BID goal if able to tolerate would be 1 mg TID will need to titrate by 0.5 mg every week until at goal (previously off of Sinemet for 2 weeks) Lives with family and is able to feed herself and stand with assistance at home. Significant ambulatory dysfunction 2/2 Parkinsons at baseline Fall precautions, difficult to obtain orthostatic vital signs due to patient requiring assistance Cont assist with meals. PT & OT evaluated - recommending SNF Awaiting placement - preference for [facility] with referrals out to other SNFs, per CM documentation (2) Recurrent falls: Plan: placement planned as above (3) Ambulatory dysfunction: Plan: PT/OT (4) Concussion: Plan: waxing waning mental status likely related to concussion from recent fall. Cont supportive measures. SNF on discharge. (5) Scalp laceration: Plan: Traumatic laceration after fall Repaired in ER with 6 sutures Will need suture removal by 05/09/21 Monitor for signs of infection (6) CKD (chronic kidney disease), stage III: Plan: Cr: 0.7. Baseline Cr: ~1.0 Monitor renal function (7) HTN (hypertension): Plan: Continue atenolol, losartan Has Lasix prn edema. Does not have significant edema currently so will hold and monitor (8) Depression: Plan: Continue sertraline DVT Prophylaxis SCDs/ambulation DNR/DNI as per discussion with pt and pt's son Yokasta HolmanDO [facility] Hospitalist Admission and Anticipated Discharge Date Admission Date: May 02, 2021 Subjective 85 yo F with h/o Parkinson's dementia and recurrent falls s/p fall wtih subsequent head trauma requiring laceration repair this admission. mental status has been waxing and waning this admission she had some delirium last night today she is sitting up and eating jello with her sister feeing her at bedside She is able to tell me she is at the hospital and what her name is She knows that she fell and is answering questions appropriately She is not particularly hungry today and was a max assist to move out of bed per nurse She denies any pain or other issues at this time. Review of Systems Review of Systems: All systems were reviewed negative except as indicated above. Physical Exam Physical Exam: CONSTITUTIONAL: WNWD, vitals as above, generally well- appearing, NAD EYES: normal conjunctivae, no scleral icterus, ENT: external ear and nose normal, MMM NECK: trachea midline, RESPIRATORY: clear to auscultation bilaterally, no crackles, rales or wheezes, normal respiratory effort CARDIOVASCULAR: regular rate and rhythm, S1 and 2 heard without murmurs, gallops or rubs, no JVD, no peripheral edema CHEST: inspection of chest was normal GASTROINTESTINAL: soft, nontender, ND, no guarding MUSCULOSKELETAL: strength 5/5 throughout, head is normocephalic with trauma to the right forehead. SKIN: warm and dry, ecchymotic area on right lower back, lac repair with sutures in right forehead and ecchymotic area just below this, also. NEUROLOGIC: No facial palsy, no dysarthria. CN 2-12 grossly intact, falls asleep easily, normal speech, no tremor. PSYCHIATRIC: alert cooperative and oriented to person, place Results & Data Results & Data ([facility]) Vital Signs (Past 12 Hours) Vital Signs Temp Pulse Resp BP Pulse Ox 05/05/21 07:52 36.7 C 57 L 18 184/75 H 96 Laboratory Results Short CBC 05/05/21 Range/Units 11:24 WBC 6.76 (4.8-10.8) K/uL Hgb 12.6 (12.0-16.0) g/dL Hct 38.7 (37-47) % Plt Count 266 (130-400) K/uL BMP 05/05/21 11:24 Sodium 137 Potassium 3.3 L Chloride 101 Carbon Dioxide 29 BUN 15 Creatinine 0.66 Glucose 109 H Calcium 9.3 Medications Administered Current Inpatient Medications Acetaminophen (Acetaminophen 500 Mg Tab) 1,000 mg PO Q8H [facility] Stop: 06/04/21 12:29 Last Admin: 05/05/21 11:58 Dose: 1,000 mg Documented by: Atenolol (Atenolol 50 Mg Tablet) 50 mg PO QPM [facility] Stop: 06/01/21 20:59 Last Admin: 05/04/21 22:02 Dose: 50 mg Documented by: Carbidopa/Levodopa (Carbidopa/Levodopa 25/100mg Tab) 0.5 tab PO BID [facility] Stop: 06/03/21 20:59 Last Admin: 05/05/21 08:54 Dose: 0.5 tab Documented by: Enoxaparin Sodium (Enoxaparin Inj 30 Mg/0.3 Ml Syr) 30 mg SQ Q24H [facility] Stop: 06/01/21 19:59 Last Admin: 05/04/21 22:01 Dose: 30 mg Documented by: Losartan Potassium (Losartan Potassium 50 Mg Tab) 50 mg PO QAM [facility] Stop: 06/02/21 08:59 Last Admin: 05/05/21 09:57 Dose: 50 mg Documented by: Magnesium Hydroxide (Magnesium Hydroxide Susp 30 Ml Udc) 30 ml PO Q12H PRN PRN Reason: Constipation Stop: 06/01/21 18:27 Meloxicam (Meloxicam 7.5 Mg Tab) 7.5 mg PO DAILY PRN PRN Reason: Pain Stop: 06/01/21 18:27 Polyethylene Glycol (Polyethylene (Miralax) 17 Gm Pack) 17 gm PO DAILY PRN PRN Reason: Constipation Stop: 06/01/21 18:27 Sertraline HCl (Sertraline Hcl 50 Mg Tablet) 25 mg PO QAM [facility] Stop: 06/02/21 08:59 Last Admin: 05/05/21 08:53 Dose: 25 mg Documented by:
[2021-05-05] MEDS: ATENOLOL 50 MG TABLET PO SCH (20:18)
[2021-05-06] MEDS: ACETAMINOPHEN 500 MG TAB PO SCH ×2 (04:40→21:03)
[2021-05-06] MEDS: CARBIDOPA/LEVODOPA 25/100MG TAB PO SCH ×2 (07:49→21:03)
[2021-05-06] MEDS: SERTRALINE HCL 50 MG TABLET PO SCH (07:50)
[2021-05-06] MEDS: LOSARTAN POTASSIUM 50 MG TAB PO SCH (07:50)
--- NOTE | 2021-05-06 09:32 | Hospitalist Progress Note ---
Date of Service May 06, 2021 Assessment & Plan (1) Parkinsons disease: Plan: Patient is 85-year-old female with PMH Parkinson's, history of recurrent falls, HTN, CKD III, depression presented to ER with complaint of fall today resulting in hitting head and head laceration. Progressive Parkinson'scausingambulatory dysfunction and falls * Neurogenic Orthostatic Hypotension (NOH)due toParkinsons * Dysequilibriumdue toprogression of Parkinsons Disease * Hospital -induced delirium in setting of known Parkinson's dementia -> Improving Initial head CT was unremarkable lac repair in ER, sutures in place and ecchymotic area continues to heal daily. Waxing/waning mental status after head trauma on mobic at home Repeat head CT and head CTA was negative for bleed or other acute intracranial abnormality Neuro consulted * Continue Sinemet 0.5 mg BID goal if able to tolerate would be 1 mg TID will need to titrate by 0.5 mg every week until at goal (previously off of Sinemet for 2 weeks) Lives with family and is able to feed herself and stand with assistance at home. Significant ambulatory dysfunction 2/2 Parkinsons at baseline Fall precautions, difficult to obtain orthostatic vital signs due to patient requiring assistance Cont assist with meals. PT & OT evaluated - recommending SNF Awaiting placement - preference for [facility] with referrals out to other SNFs, per CM documentation (2) Recurrent falls: Plan: placement planned as above (3) Ambulatory dysfunction: Plan: PT/OT (4) Concussion: Plan: waxing waning mental status likely related to concussion from recent fall. Cont supportive measures. SNF on discharge. (5) Scalp laceration: Plan: Traumatic laceration after fall Repaired in ER with 6 sutures Will need suture removal by 05/09/21 Monitor for signs of infection (6) CKD (chronic kidney disease), stage III: Plan: Cr: 0.7. Baseline Cr: ~1.0 Monitor renal function (7) HTN (hypertension): Plan: Elevated blood pressure to 200 this am. Came down to 138 without issue. Continue atenolol, losartan. Has Lasix prn edema. Does not have significant edema currently so will hold and monitor (8) Depression: Plan: Continue sertraline DVT Prophylaxis SCDs/ambulation DNR/DNI as per discussion with pt and pt's son YokastaDO [facility] Hospitalist Admission and Anticipated Discharge Date Admission Date: May 02, 2021 Subjective 85 yo F with h/o Parkinson's dementia and recurrent falls s/p fall wtih subsequent head trauma requiring laceration repair this admission. she is somnolent this am but is oriented to person and place, not the year she is answering questions appropriately for the most part denies any pain open to eating breakfast which has just arrived. Review of Systems Review of Systems: All systems were reviewed negative except as indicated above. Physical Exam Physical Exam: CONSTITUTIONAL: WNWD, vitals as above, generally well- appearing, NAD EYES: normal conjunctivae, no scleral icterus, ENT: external ear and nose normal, MMM NECK: trachea midline, RESPIRATORY: clear to auscultation bilaterally, no crackles, rales or wheezes, normal respiratory effort CARDIOVASCULAR: regular rate and rhythm, S1 and 2 heard without murmurs, gallops or rubs, no JVD, no peripheral edema CHEST: inspection of chest was normal GASTROINTESTINAL: soft, nontender, ND, no guarding MUSCULOSKELETAL: strength 5/5 throughout, head is normocephalic with trauma to the right forehead. SKIN: warm and dry, ecchymotic area on right lower back, lac repair with sutures in right forehead and ecchymotic area just below this, also. NEUROLOGIC: No facial palsy, no dysarthria. CN 2-12 grossly intact, falls asleep easily, normal speech, no tremor. PSYCHIATRIC: alert cooperative and oriented to person, place Results & Data Results & Data ([facility]) Vital Signs (Past 12 Hours) Vital Signs Temp Pulse Pulse Resp BP BP Pulse Ox 05/06/21 07:54 138/76 05/06/21 07:40 36.5 C 61 18 200/77 H 97 05/06/21 03:03 36.5 C 62 18 168/70 H 95 05/05/21 22:50 36.7 C 63 16 170/75 H 98 Laboratory Results Short CBC 05/05/21 Range/Units 11:24 WBC 6.76 (4.8-10.8) K/uL Hgb 12.6 (12.0-16.0) g/dL Hct 38.7 (37-47) % Plt Count 266 (130-400) K/uL BMP 05/05/21 11:24 Sodium 137 Potassium 3.3 L Chloride 101 Carbon Dioxide 29 BUN 15 Creatinine 0.66 Glucose 109 H Calcium 9.3 Medications Administered Current Inpatient Medications Acetaminophen (Acetaminophen 500 Mg Tab) 1,000 mg PO Q8H [facility] Stop: 06/04/21 12:29 Last Admin: 05/06/21 04:40 Dose: 1,000 mg Documented by: Atenolol (Atenolol 50 Mg Tablet) 50 mg PO QPM [facility] Stop: 06/01/21 20:59 Last Admin: 05/05/21 20:18 Dose: 50 mg Documented by: Carbidopa/Levodopa (Carbidopa/Levodopa 25/100mg Tab) 0.5 tab PO BID [facility] Stop: 06/03/21 20:59 Last Admin: 05/06/21 07:49 Dose: 0.5 tab Documented by: Losartan Potassium (Losartan Potassium 50 Mg Tab) 50 mg PO QAM [facility] Stop: 06/02/21 08:59 Last Admin: 05/06/21 07:50 Dose: 50 mg Documented by: Magnesium Hydroxide (Magnesium Hydroxide Susp 30 Ml Udc) 30 ml PO Q12H PRN PRN Reason: Constipation Stop: 06/01/21 18:27 Meloxicam (Meloxicam 7.5 Mg Tab) 7.5 mg PO DAILY PRN PRN Reason: Pain Stop: 06/01/21 18:27 Polyethylene Glycol (Polyethylene (Miralax) 17 Gm Pack) 17 gm PO DAILY PRN PRN Reason: Constipation Stop: 06/01/21 18:27 Sertraline HCl (Sertraline Hcl 50 Mg Tablet) 25 mg PO QAM [facility] Stop: 06/02/21 08:59 Last Admin: 05/06/21 07:50 Dose: 25 mg Documented by:
[2021-05-06 16:25] LABS: Appearance Urine Clear (Clear); Bilirubin Urine Negative (Negative); Blood Urine Negative (Negative); Color Urine Yellow; Glucose Urine UA Negative (Negative); Ketones Urine Trace (Negative); Leukocyte Esterase Urine Negative (Negative); Nitrite Urine Negative (Negative); Protein Urine Negative (Negative); Specific Gravity Urine 1.024 (1.000-1.030); Urobilinogen Urine Negative (Negative)
[2021-05-06] MEDS: ATENOLOL 50 MG TABLET PO SCH (21:03)
[2021-05-07] MEDS: SERTRALINE HCL 50 MG TABLET PO SCH (08:53)
[2021-05-07] MEDS: LOSARTAN POTASSIUM 50 MG TAB PO SCH (08:53)
[2021-05-07] MEDS: CARBIDOPA/LEVODOPA 25/100MG TAB PO SCH ×2 (08:54→21:23)
[2021-05-07] MEDS: ACETAMINOPHEN 500 MG TAB PO SCH ×2 (08:54→21:22)
--- NOTE | 2021-05-07 13:07 | Hospitalist Progress Note ---
Date of Service May 07, 2021 Assessment & Plan (1) Ambulatory dysfunction: Plan: PT/OT (2) Recurrent falls: Plan: placement planned as above (3) Parkinsons disease: Plan: Patient is 85-year-old female with PMH Parkinson's, history of recurrent falls, HTN, CKD III, depression presented to ER with complaint of fall today resulting in hitting head and head laceration. Progressive Parkinson'scausingambulatory dysfunction and falls * Neurogenic Orthostatic Hypotension (NOH)due toParkinsons * Dysequilibriumdue toprogression of Parkinsons Disease * Hospital -induced delirium in setting of known Parkinson's dementia -> Improving Initial head CT was unremarkable lac repair in ER, sutures in place and ecchymotic area continues to heal daily. Waxing/waning mental status after head trauma on mobic at home Repeat head CT and head CTA was negative for bleed or other acute intracranial abnormality Neuro consulted * Continue Sinemet 0.5 mg BID goal if able to tolerate would be 1 mg TID will need to titrate by 0.5 mg every week until at goal (previously off of Sinemet for 2 weeks) Lives with family and is able to feed herself and stand with assistance at home. Significant ambulatory dysfunction 2/2 Parkinsons at baseline Fall precautions, difficult to obtain orthostatic vital signs due to patient requiring assistance Cont assist with meals. PT & OT evaluated - recommending SNF Awaiting placement - preference for [facility] with referrals out to other SNFs, per CM documentation (4) CKD (chronic kidney disease), stage III: Plan: Cr: 0.7. Baseline Cr: ~1.0 Monitor renal function (5) HTN (hypertension): Plan: Elevated blood pressure to 200 this am. Came down to 138 without issue. Continue atenolol, losartan. Has Lasix prn edema. Does not have significant edema currently so will hold and monitor (6) Depression: Plan: Continue sertraline DVT Prophylaxis SCDs/ambulation DNR/DNI as per discussion with pt and pt's son Yokasta HolmanDO [facility] Hospitalist Admission and Anticipated Discharge Date Admission Date: May 02, 2021 Subjective 85 yo F with h/o Parkinson's dementia and recurrent falls s/p fall wtih subsequent head trauma requiring laceration repair this admission. she is somnolent today and nurse reports limited sleep overnight she is arousable but falls back asleep easily. didn't eat much food today as a result of somnolence. sister was at bedside during my assessment today. Review of Systems Review of Systems: unable to assess ROS 2/2 somnolence. Physical Exam Physical Exam: CONSTITUTIONAL: WNWD, vitals as above, somnolent, NAD EYES: normal conjunctivae, no scleral icterus, ENT: external ear and nose normal, MMM NECK: trachea midline, RESPIRATORY: clear to auscultation bilaterally, no crackles, rales or wheezes, normal respiratory effort CARDIOVASCULAR: regular rate and rhythm, S1 and 2 heard without murmurs, gallops or rubs, no JVD, no peripheral edema CHEST: inspection of chest was normal GASTROINTESTINAL: soft, nontender, ND, no guarding MUSCULOSKELETAL: strength 5/5 throughout, head is normocephalic with trauma to the right forehead. SKIN: warm and dry, ecchymotic area on right lower back, lac repair with sutures in right forehead and ecchymotic area just below this, also. This area now turning green while healing. NEUROLOGIC: No facial palsy, no dysarthria. CN 2-12 grossly intact, falls asleep easily, normal speech, no tremor. PSYCHIATRIC: alert cooperative and oriented to person, place Results & Data Results & Data ([facility]) Vital Signs (Past 12 Hours) Vital Signs Temp Pulse Resp BP BP Pulse Ox 05/07/21 13:00 121/62 05/07/21 12:40 55 L 16 104/55 L 96 05/07/21 09:07 36.5 C 55 L 18 148/75 H 93 Laboratory Results Urine 05/06/21 Range/Units 16:15 Urine Color Yellow Urine Appearance Clear (Clear) Urine pH 6.0 (4.5-7.5) Ur Specific [place] 1.024 (1.000-1.030) Urine Protein Negative (Negative) Urine Glucose (UA) Negative (Negative) Medications Administered Current Inpatient Medications Acetaminophen (Acetaminophen 500 Mg Tab) 1,000 mg PO BID [facility] Stop: 06/05/21 20:59 Last Admin: 05/07/21 08:54 Dose: 1,000 mg Documented by: Atenolol (Atenolol 50 Mg Tablet) 50 mg PO QPM [facility] Stop: 06/01/21 20:59 Last Admin: 05/06/21 21:03 Dose: 50 mg Documented by: Carbidopa/Levodopa (Carbidopa/Levodopa 25/100mg Tab) 0.5 tab PO BID [facility] Stop: 06/03/21 20:59 Last Admin: 05/07/21 08:54 Dose: 0.5 tab Documented by: Losartan Potassium (Losartan Potassium 50 Mg Tab) 50 mg PO QAM [facility] Stop: 06/02/21 08:59 Last Admin: 05/07/21 08:53 Dose: 50 mg Documented by: Magnesium Hydroxide (Magnesium Hydroxide Susp 30 Ml Udc) 30 ml PO Q12H PRN PRN Reason: Constipation Stop: 06/01/21 18:27 Meloxicam (Meloxicam 7.5 Mg Tab) 7.5 mg PO DAILY PRN PRN Reason: Pain Stop: 06/01/21 18:27 Polyethylene Glycol (Polyethylene (Miralax) 17 Gm Pack) 17 gm PO DAILY PRN PRN Reason: Constipation Stop: 06/01/21 18:27 Sertraline HCl (Sertraline Hcl 50 Mg Tablet) 25 mg PO QAM [facility] Stop: 06/02/21 08:59 Last Admin: 05/07/21 08:53 Dose: 25 mg Documented by:
[2021-05-07] MEDS: ATENOLOL 50 MG TABLET PO SCH (21:22)
[2021-05-08] MEDS: SERTRALINE HCL 50 MG TABLET PO SCH (08:13)
[2021-05-08] MEDS: LOSARTAN POTASSIUM 50 MG TAB PO SCH (08:13)
[2021-05-08] MEDS: CARBIDOPA/LEVODOPA 25/100MG TAB PO SCH (08:14)
[2021-05-08] MEDS: ACETAMINOPHEN 500 MG TAB PO SCH (08:14)
[2021-05-08 12:25] LABS: Hematocrit (blood only) 39.9 % (37-47); Hemoglobin 12.7 g/dL (12.0-16.0); Mean Corpuscular Hgb Conc 31.8 g/dL (32-36); Mean Corpuscular Volume 94.1 fL (80-100); Mean Platelet Volume 10.7 fL (7.4-10.4); Platelet Count 314 K/uL (130-400); RDW Coefficient of Variation 14.1 % (11.5-14.5); RDW Standard Deviation 47.9 fL (36.4-46.3); Red Blood Count 4.24 M/uL (4.2-5.4); White Blood Count 7.91 K/uL (4.8-10.8)
[2021-05-08 12:56] LABS: BUN Creatinine Ratio 21.5 (10-20); Calcium 9.1 mg/dl (8.5-10.1); Creatinine Clr Calc Pharmacy 44.1 ml/min; Est GFR (African American) 80.2 ml/min; Est GFR (Non-African American) 69.2 ml/min; Magnesium 1.7 mg/dl (1.7-2.4); Phosphorus 2.5 mg/dl (2.5-4.9); Potassium 3.1 mmol/L (3.5-5.1)
[2021-05-08] MEDS ORDERED: POTASSIUM CHLORIDE CRTAB 20 MEQ TABCR PO STA (13:04)
--- NOTE | 2021-05-08 13:11 | Discharge Summary ---
Date of Service May 08, 2021 Admission HPI Per Admitting Provider Patient is 85-year-old female with PMH Parkinson's, history of recurrent falls, HTN, CKD III, depression presented to ER with complaint of fall. History obtained from patient and assisted by patient's son. Patient son reports at baseline patient has problems with her memory and feels like she is at her baseline today. Patient with history hospitalization at [facility] 04/20/2021- 04/21/2021 for strokelike symptoms. MRI negative for acute stroke. Patient with noted ambulatory dysfunction and reported progressive weakness. At that time family was not considering rehab or placement. Patient had been off her Sinemet for 2 weeks prior to last admission however upon last hospital discharge was re- started on low-dose Sinemet and has slowly been tapering up. Patient has had 2 falls in the past 2 weeks. Patient reports several weeks ago was having dizziness with standing but doesn't think she was dizzy prior to fall today. Son states patient upon standing has a hard time starting to walk and then her feet get tangled and she loses her balance and falls. Does have walker at home. Today fell hitting her head causing head laceration which was repaired in ER. Denies LOC. Denies any other injury. Family report that they are getting to the point where they cannot safely care for patient at home and have been trying to get patient in to [facility] personal care and son reports they are on wait list. Denies fever/chills, diaphoresis, N/V/D/C, JENSEN, syncope, vision changes, neck pain, CP, SOB, orthopnea, palpitations, cough, sore throat, choking, otalgia, rhinorrhea, abdominal pain, paresthesias, extremity edema, rashes, urinary symptoms. Principal Diagnosis Parkinson's Disease Ambulatory Dysfunction Recurrent falls with recent scalp laceration s/p repair Concussion Dementia CKD Stage III Discharge Data Allergies Allergy/AdvReac Type Severity Reaction Status Date / Time Sulfa (Sulfonamide Allergy Intermediate Rash Verified 05/02/21 16:15 Antibiotics) carbidopa AdvReac Intermediate FELL Verified 05/02/21 16:15 SEVERAL TIMES levodopa AdvReac Intermediate FELL Verified 05/02/21 16:15 SEVERAL TIMES nitrofurantoin AdvReac Intermediate NAUSEA/VOMI Verified 05/02/21 16:15 TING Consultations 05/02/21 14:51 ED Decision to Admit Stat 05/03/21 14:58 Consult Neurology Routine Ordered Studies Laboratory Results WBC 7.91 K/uL (4.8-10.8) 05/08/21 12:04 RBC 4.24 M/uL (4.2-5.4) 05/08/21 12:04 Hgb 12.7 g/dL (12.0-16.0) 05/08/21 12:04 Hct 39.9 % (37-47) 05/08/21 12:04 MCV 94.1 fL (80-100) 05/08/21 12:04 MCH 30.0 pg (25-34) 05/08/21 12:04 MCHC 31.8 g/dL (32-36) L 05/08/21 12:04 RDW Std Deviation 47.9 fL (36.4-46.3) H 05/08/21 12:04 RDW Coeff of Joe 14.1 % (11.5-14.5) 05/08/21 12:04 Plt Count 314 K/uL (130-400) 05/08/21 12:04 MPV 10.7 fL (7.4-10.4) H 05/08/21 12:04 Immature Gran % (Auto) 0.2 % 05/04/21 01:30 Neut % (Auto) 78.0 % 05/04/21 01:30 Lymph % (Auto) 14.7 % 05/04/21 01:30 [place] % (Auto) 6.8 % 05/04/21 01:30 Eos % (Auto) 0.1 % 05/04/21 01:30 Baso % (Auto) 0.2 % 05/04/21 01:30 Neut # (Auto) 7.64 K/uL (1.4-6.5) H 05/04/21 01:30 Lymph # (Auto) 1.44 K/uL (1.2-3.4) 05/04/21 01:30 [place] # (Auto) 0.67 K/uL (0.11-0.59) H 05/04/21 01:30 Eos # (Auto) 0.01 K/uL (0-0.5) 05/04/21 01:30 Baso # (Auto) 0.02 K/uL (0-0.2) 05/04/21 01:30 Immature Gran # (Auto) 0.02 K/uL (0.00-0.02) 05/04/21 01:30 Platelet Estimate Normal (Normal) 05/02/21 14:36 Polychromasia 1+ 05/02/21 14:36 Poikilocytosis Present 05/02/21 14:36 Sodium 139 mmol/L (136-145) 05/08/21 12:04 Potassium 3.1 mmol/L (3.5-5.1) L 05/08/21 12:04 Chloride 103 mmol/L (98-107) 05/08/21 12:04 Carbon Dioxide 28 mmol/L (21-32) 05/08/21 12:04 Anion Gap 8 (3-11) 05/08/21 12:04 BUN 17 mg/dl (6-23) 05/08/21 12:04 Creatinine 0.79 mg/dl (0.6-1.2) 05/08/21 12:04 Est Cr Clr Drug Dosing 44.1 ml/min 05/08/21 12:04 Est GFR ( Amer) 80.2 ml/min 05/08/21 12:04 Est GFR (Non-Af Amer) 69.2 ml/min 05/08/21 12:04 BUN/Creatinine Ratio 21.5 (10-20) H 05/08/21 12:04 Glucose 175 mg/dl (70-99(Fasting)) H 05/08/21 12:04 POC Glucose 108 mg/dl (70-99) H 05/03/21 15:11 Calcium 9.1 mg/dl (8.5-10.1) 05/08/21 12:04 Phosphorus 2.5 mg/dl (2.5-4.9) 05/08/21 12:04 Magnesium 1.7 mg/dl (1.7-2.4) 05/08/21 12:04 Total Bilirubin 0.6 mg/dl (0.2-1.0) 05/04/21 01:30 AST 12 U/L (13-39) L 05/04/21 01:30 ALT 8 U/L (7-52) 05/04/21 01:30 Alkaline Phosphatase 93 U/L (34-104) 05/04/21 01:30 Ammonia 17.0 umol/L (18-72) L 05/04/21 01:43 Total Protein 6.9 gm/dl (6.0-8.3) 05/04/21 01:30 Albumin 4.2 gm/dl (3.4-5.0) 05/04/21 01:30 Globulin 2.7 gm/dl (2.5-4.0) 05/04/21 01:30 Albumin/Globulin Ratio 1.6 (0.9-2) 05/04/21 01:30 TSH 1.986 uIu/ml (0.300-4.500) 05/02/21 14:36 Urine Color Yellow 05/06/21 16:15 Urine Appearance Clear (Clear) 05/06/21 16:15 Urine pH 6.0 (4.5-7.5) 05/06/21 16:15 Ur Specific [place] 1.024 (1.000-1.030) 05/06/21 16:15 Urine Protein Negative (Negative) 05/06/21 16:15 Urine Glucose (UA) Negative (Negative) 05/06/21 16:15 Urine Ketones Trace (Negative) H 05/06/21 16:15 Urine Blood Negative (Negative) 05/06/21 16:15 Urine Nitrite Negative (Negative) 05/06/21 16:15 Urine Bilirubin Negative (Negative) 05/06/21 16:15 Urine Urobilinogen Negative (Negative) 05/06/21 16:15 Ur Leukocyte Esterase Negative (Negative) 05/06/21 16:15 SARS-CoV-2, RNA, NAAT NEGATIVE (NEGATIVE) 05/08/21 Unknown Impressions Cervical Spine CT 05/02/21 12:07 CT cervical spine wo con CT DOSE: 463.74 mGycm CLINICAL HISTORY: 85 years-old Female with fall. Acute head and neck injury status post fall COMPARISON: Head CT of same day and also 04/20/2021 TECHNIQUE: Multiple axial CT images of the cervical spine were obtained without contrast. A dose lowering technique was utilized adhering to the principles of ALARA. FINDINGS: Straightening of the normal cervical lordosis. Severe C1-C2 degeneration. Advanced anterior endplate spondylitic spurring and C4-C6. Moderate to severe multilevel intervertebral disc space narrowing with degenerative related partial bony fusion of several levels. Posterior disc osteophyte complex formations are most pronounced at the C4-C5 interspace. Grade 1 anterolisthesis C4 on C5 is likely degenerative. No acute fracture or subluxation. Multilevel neuroforaminal narrowing. No prevertebral edema. Calcified plaque of the carotid arteries. Lung apices are clear without pneumothorax. IMPRESSION: No acute fracture or subluxation. ACT 112: Negative or not required by law. The above report was generated using voice recognition software. It may contain grammatical, syntax or spelling errors. Electronically signed by: Juan Ty M.D. 05/02/2021 12:[address] 05/03/21 17:00 CT head/brain wo con, CT angio head w con CLINICAL HISTORY: 85 years-old Female with lethargy. Acutely altered mental status TECHNIQUE: Multiple axial CT images of the head were obtained without contrast. A dose lowering technique was utilized adhering to the principles of ALARA. CTA of the head was also obtained following the intravenous administration of 120 mL Optiray 320. 3-D coronal and sagittal MIPS were obtained from the axial data set and were submitted for review. All measurements were obtained according to NASCET criteria. CT DOSE: 966.62 mGy.cm COMPARISON: None. FINDINGS: CT HEAD: No acute intracranial hemorrhage, midline shift, intracranial mass, hydrocephalus, territorial ischemia or abnormal extra-axial collection. Age- related involutional changes. White matter hypodensities suggest chronic microvascular ischemic disease. Cerebral vascular calcifications. The calvarium is intact. There is mild subcutaneous emphysema of the right frontal scalp suggestive of penetrating trauma. Small right supraorbital contusion. Prior bilateral lens repair. The paranasal sinuses, mastoid air cells, and middle ear cavities are clear. CTA HEAD: The imaged bilateral internal carotid arteries are patent with mild atherosclerotic plaque. The middle and anterior cerebral arteries are patent. The distal vertebral and basilar arteries are patent. origin of the left posterior cerebral artery. The posterior cerebral arteries are widely patent. The cerebral venous sinuses are patent. There is no abnormal intracranial enhancement. IMPRESSION: 1. No acute intracranial abnormality. 2. Small right supraorbital contusion with subcutaneous emphysema suggestive of laceration. 3. Unremarkable CTA of the head. ACT 112: Negative or not required by law. The above report was generated using voice recognition software. It may contain grammatical, syntax or spelling errors. Electronically signed by: Juan Ty M.D. 05/04/2021 7:20 AM Head CTA 05/03/21 17:00 CT head/brain wo con, CT angio head w con CLINICAL HISTORY: 85 years-old Female with lethargy. Acutely altered mental status TECHNIQUE: Multiple axial CT images of the head were obtained without contrast. A dose lowering technique was utilized adhering to the principles of ALARA. CTA of the head was also obtained following the intravenous administration of 120 mL Optiray 320. 3-D coronal and sagittal MIPS were obtained from the axial data set and were submitted for review. All measurements were obtained according to NASCET criteria. CT DOSE: 966.62 mGy.cm COMPARISON: None. FINDINGS: CT HEAD: No acute intracranial hemorrhage, midline shift, intracranial mass, hydrocephalus, territorial ischemia or abnormal extra-axial collection. Age- related involutional changes. White matter hypodensities suggest chronic microvascular ischemic disease. Cerebral vascular calcifications. The calvarium is intact. There is mild subcutaneous emphysema of the right fro ntal scalp suggestive of penetrating trauma. Small right supraorbital contusion. Prior bilateral lens repair. The paranasal sinuses, mastoid air cells, and middle ear cavities are clear. CTA HEAD: The imaged bilateral internal carotid arteries are patent with mild atherosclerotic plaque. The middle and anterior cerebral arteries are patent. The distal vertebral and basilar arteries are patent. origin of the left posterior cerebral artery. The posterior cerebral arteries are widely patent. The cerebral venous sinuses are patent. There is no abnormal intracranial enhancement. IMPRESSION: 1. No acute intracranial abnormality. 2. Small right supraorbital contusion with subcutaneous emphysema suggestive of laceration. 3. Unremarkable CTA of the head. ACT 112: Negative or not required by law. The above report was generated using voice recognition software. It may contain grammatical, syntax or spelling errors. Electronically signed by: Juan Ty M.D. 05/04/2021 7:20 AM Hospital Course (1) Ambulatory dysfunction: PT/OT (2) Recurrent falls: placement planned as above (3) Parkinsons disease: Patient is 85-year-old female with PMH Parkinson's, history of recurrent falls, HTN, CKD III, depression presented to ER with complaint of fall today resulting in hitting head and head laceration. Progressive Parkinson'scausingambulatory dysfunction and falls * Neurogenic Orthostatic Hypotension (NOH)due toParkinsons * Dysequilibriumdue toprogression of Parkinsons Disease * Hospital -induced delirium in setting of known Parkinson's dementia -> Improving Initial head CT was unremarkable lac repair in ER, sutures in place and ecchymotic area continues to heal daily. Waxing/waning mental status after head trauma on mobic at home Repeat head CT and head CTA was negative for bleed or other acute intracranial abnormality Neuro consulted * Continue Sinemet 0.5 mg BID goal if able to tolerate would be 1 mg TID will ne ed to titrate by 0.5 mg every week until at goal (previously off of Sinemet for 2 weeks) Lives with family and is able to feed herself and stand with assistance at home. Significant ambulatory dysfunction 2/2 Parkinsons at baseline Fall precautions, difficult to obtain orthostatic vital signs due to patient requiring assistance Cont assist with meals. PT & OT evaluated - recommending SNF Awaiting placement - preference for [facility] with referrals out to other SNFs, per CM documentation (4) CKD (chronic kidney disease), stage III: Cr: 0.7. Baseline Cr: ~1.0 Monitor renal function (5) HTN (hypertension): Elevated blood pressure to 200 this am. Came down to 138 without issue. Continue atenolol, losartan. Has Lasix prn edema. Does not have significant edema currently so will hold and monitor (6) Depression: Continue sertraline DVT Prophylaxis SCDs/ambulation DNR/DNI as per discussion with pt and pt's son Yokasta HolmanDO [facility] Hospitalist Total Time Total Time Spent Total Time Spent (In Minutes): 60 Discharge Plan Discharge Items Patient Disposition: Transfer Nursing Home Fac Reason For Visit: AMBULATORY DYSFUNCTION Discharge Diagnosis: Parkinson's Disease Ambulatory Dysfunction Recurrent falls with recent scalp laceration s/p repair Concussion Dementia CKD Stage III Condition on Discharge: Good Activity: Resume your previous activity Non-emergency contact: Primary Care Provider Call non-emergency contact if: you have any medication questions, your symptoms worsen, your pain is not controlled and your pain is worsening Follow-up/Referrals: Keyanna Fink MD [Primary Care Provider] - Diet: Heart Healthy Addtl Attending Provider Instructions: Please continue all medications as instructed on discharge list below. It is recommended that you follow up with your primary care physician within one week of hospital discharge to ensure you are still doing well after returning home. Your sutures will need to be evaluated for removal on 05/09/21. Please follow-up with Neurology for medication review. It was a pleasure taking care of you! Please call if you have any questions or problems. You can reach a [facility] hospitalist on duty at [facility] 24 hours a day by calling [phone]. Take care of yourself. Yokasta Holman, DO [facility] Hospitalist Pending Studies at Discharge: No Stand-Alone Forms: My [facility] Skilled Items Patient informed of condition?: Yes DNR: Yes Discharge Level of Care: Skilled Communicable Disease: No Discharge Prognosis: Stable Lines: None Urinary Catheter: No Medications and DC Order Prescriptions: Continued losartan 50 mg tablet 50 mg PO QAM RF: 0 furosemide 40 mg tablet 40 mg PO DAILY PRN (Reason: EDEMA IN FEET) RF: 0 meloxicam 7.5 mg tablet 7.5 mg PO DAILY PRN (Reason: Pain) RF: 0 sertraline 25 mg tablet 25 mg PO QDD RF: 0 atenolol 50 mg tablet 50 mg PO QDL RF: 0 acetaminophen 650 mg Tablet Extended Release 650 mg PO QDD RF: 0 carbidopa-levodopa [Sinemet] 25-100 mg tablet 0.5 tab PO .BID AT 0800 & 1200 RF: 0 Discharge Orders: Discharge Order (Routine); Ordered 05/08/21 Ordered By: Yokasta Holman Admission Data Admit Date/Time: 05/02/21 15:14 Attending Provider: Yokasta Holman Admit Provider: Andrzej Elmore Primary Care Provider: Keyanna Fink Other Providers: Randee Lo ; Nora Carter at [place] ; [place],[facility] ; [facility] ; Nora Brunson ; Dylon Ortiz ; Arlin Shipman
== END 2021-05-08 14:19 | DRG 57 ==
LOC: ED 11:26 → SUATTDRO 15:14 → 3W 15:14